=== PATIENT | female | born 1980 | race Caucasian/White ===

== ENCOUNTER 2019-12-18 15:59 | Emergency (ER) | payer BC, SELFPAY ==
[2019-12-18 16:01] VITALS: BP 141/80; PULSE 84; RESP 17; TEMP 36.6; O2SAT 100; BMI 42.8
--- NOTE | 2019-12-18 16:36 | ED.LOWEXIN ---
HPI - Extremity Injury (Lower) General Chief Complaint: Extremity Injury, Lower Stated Complaint: knee swelling Time Seen by Provider: 12/18/19 16:24 Source: patient Mode of arrival: ambulatory Limitations: no limitations History of Present Illness HPI Narrative: 39yo female here with bilateral knee pain x few weeks. Worsened over last week. 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 No fall or injury. No redness/fevers/chills. R knee>L knee with pain and swelling. MD complaint: other (bilateral knee pain, no injury ) Onset (ago): week(s) Injury: Bilateral: knee Type of Injury: other (no injury) Severity: moderate Relieving factors: immobilization and rest Exacerbating factors: weight bearing, movement and palpation Other symptoms: none Treatments prior to arrival: cold therapy and other (APAP) Related Data Previous Rx's Medication Instructions Recorded oxycodone 5 mg PO Q8H PRN #10 tab 12/18/19 Allergies Allergy/AdvReac Type Severity Reaction Status Date / Time aspirin [ASPIRIN] Allergy Mild TACHYCARDIA, Unverified 11/10/19 16:58 THROAT SWELLING, throat swelling, swollen throat phentermine Allergy Unknown sleepiness Uncoded 01/05/19 00:00 Review of Systems Review of Systems: Yes all other systems are reviewed and are negative Constitutional: Constitutional: Reports no additional constitutional complaints, Denies body ache(s), Denies chills, Denies fever(s), Denies headache(s) and Denies weakness Eyes: Eyes: Reports no additional eye complaints and Denies change in vision ENT: Reports system reviewed and no additional complaints, except as documented, Denies dizziness, Denies headache(s), Denies nasal congestion, Denies nasal discharge and Denies neck pain Cardiovascular: Cardiovascular: Reports no additional cardiovascular complaints, Denies chest pain, Denies leg edema and Denies dyspnea Respiratory: Respiratory: Reports no additional respiratory complaints, Denies cough and Denies dyspnea Gastrointestinal: Gastrointestinal: Reports no additional gastrointestinal complaints, Denies abdominal pain, Denies diarrhea, Denies nausea and Denies vomiting Genitourinary: Genitourinary: Reports no additional female genitourinary complaints and Denies urinary incontinence Musculoskeletal: Musculoskeletal: Reports no additional musculoskeletal complaints, Denies back pain, Reports arthralgias, Reports joint swelling, Denies neck pain, Denies numbness and Denies tingling Integumentary/Breasts: Skin/Breast: Reports system reviewed and no additional complaints, except as docu and Denies rash Neurologic: Reports system reviewed and no additional complaints, except as documented, Denies Abnormal speech present, Denies dizziness, Denies headache(s), Denies numbness, Denies tingling and Denies weakness PMF Past Medical History Attestation statement: The following information was validated with the patient. Source: obtained from family and nursing notes reviewed Social History Social History Advance Directives: No Advance Directives Information Provided: No Physical Exam Vital Signs: Vital Signs: Vital Signs Temp Pulse Resp BP Pulse Ox 12/18/19 16:01 98 F 84 17 141/80 H 100 Body Mass Index 42.8 Const: General: cooperative, healthy appearing, comfortable and no acute distress Orientation/consciousness: patient oriented x3 Limitations: no limitations HENMT: Head: Yes normal to inspection Ears: hearing grossly normal bilaterally General nose exam: Normal external nose present Face and sinus: Yes normal facial exam Mouth: Normal oral and palatal mucosa present Throat: Yes posterior oropharynx normal Eyes: General: appearance normal, both eyes and all related structures Pupils: Equal, round and reactive pupils present Neck: Neck: Yes normal visual inspection Chest: Chest palpation & inspection: normal inspection of the chest Resp: Effort & Inspection: normal respiratory effort Auscultation: clear to auscultation bilaterally Cardio: Rate: regular rate Rhythm: regular rhythm Peripheral pulses: Peripheral pulses 2+ throughout GI: Inspection: Yes normal to inspection Palpation (GI): Soft to palpation and nontender Auscultation: normal bowel sounds Back/Spine/Pelvis: Thoracic/Lumbar Spine: thoracic and lumbar spine normal to inspection Skin: General skin exam: no rashes or lesions noted Neuro: General: patient oriented x3, no focal motor deficits and normal sensation to monofilament Cranial nerves: Yes Equal, round and reactive pupils present Cognition (Neuro): normal cognition Speech: No Abnormal speech present Gait exam (Neuro): Normal gait present Motor exam (neuro): 5/5 motor strength present throughout Extrem: General: Yes normal to inspection Right lower extremity: normal capillary refill and knee Details: normal to inspection, tenderness Location: of the patella and of the medial joint line, abnormal ROM (Pain with flexion but is able. At extension with no difficulty) and knee ligament exam normal; no ecchymosis, no deformity and no unusual warmth; no cyanosis and no edema Left lower extremity: normal to inspection, normal capillary refill and knee Details: normal to inspection, tenderness Location: of the patella and abnormal ROM (Pain with flexion but able. At extension with no difficulty); no swelling; no cyanosis and no edema Course Course Course Narrative: X-rays consistent with bilateral DJD. Patient was placed in Alfa wraps. We discussed supportive care at home and following with Orthopedics. Reviewed worrisome signs and symptoms of when to return to the emergency department. Comfortable discharge home. MDM - Extremity Injury (Lower) Imaging Data knee xray: My impression: DJD Radiologist's impression: EXAMINATION: XR knee LT 4V, XR knee RT 4V CLINICAL INFORMATION: Reason for Exam pain, no trauma COMPARISON: None available at the time of this dictation. TECHNIQUE: frontal, lateral, tunnel and patella sunrise views FINDINGS: BONES: No fracture or dislocation is present. JOINTS: Mild narrowing of joint spaces suggest early mild DJD of both knees. No significant osteophytes. There are no joint effusions. SOFT TISSUE: Normal XR/XR knee LT 4V IMPRESSION: Mild DJD. No joint effusion. Discharge Plan Discharge Clinical Impression: Degenerative joint disease Qualifiers: Osteoarthritis location: knee Osteoarthritis type: primary Laterality: bilateral Qualified Code(s): M17.0 - Bilateral primary osteoarthritis of knee Patient Disposition: Home, Self-Care Instructions: Arthritis (ED) Additional Instructions: Ice, elevation, alfa wrap for comfort call orthopedics for a follow-up for appointment Prescriptions: New oxycodone 5 mg tablet 5 mg PO Q8H PRN (Reason: pain) Qty: 10 RF: 0 Referrals: Waylon Ann MD [Physician] - 2 days Stand Alone Forms: Work/School Release Print Language: Luxembourger
== END 2019-12-18 17:55 | disposition home or self-care (01) ==
PROVIDERS: Emergency Provider Emergency Medicine; PCP Internal Medicine
DX: M17.0 Bilateral primary osteoarthritis of knee (principal); M25.562 Pain in left knee; M25.561 Pain in right knee; Z79.899 Other long term (current) drug therapy
CPT/HCPCS: 73564; 99283

== ENCOUNTER 2020-01-10 | Outpatient (REF) | payer BC, SELFPAY | END 2020-01-10 00:01 | LOC: CF | PROVIDERS: PCP Internal Medicine; Visit Provider Orthopaedic Surgery | DX: M22.2X1 Patellofemoral disorders, right knee (principal); M22.2X2 Patellofemoral disorders, left knee | CPT/HCPCS: 20610; J1040 ==

== ENCOUNTER 2020-01-26 14:47 | Outpatient (REF) | payer BC, SELFPAY ==
--- NOTE | 2020-01-26 | MM_ITS ---
EXAMINATION: MM SCREENING DIGITAL BREAST TOMOSYNTHESIS, BILATERAL CLINICAL INFORMATION: Screening. Asymptomatic. The lifetime risk of breast cancer based on the Tyrer-Cuzick Model is 9.1%. COMPARISON: Mammography: January 05, 2019 TECHNIQUE: Digital breast tomosynthesis is performed in both the craniocaudal and mediolateral oblique views along with computer-aided detection (CAD). Synthesized 2D images are generated from the tomosynthesis. FINDINGS: The breasts are heterogeneously dense, which may obscure small masses (ACR BI-RADS breast composition Category c). There are no significant masses, abnormal calcifications, or other abnormalities. MM/MM tomosynthesis screening BI IMPRESSION: There are no significant changes from prior study. ASSESSMENT: BI-RADS 1: Negative RECOMMENDATION: Routine annual mammography screening. This patient's information was entered into a reminder system with a target due date for their next mammogram.
== END 2020-01-26 14:48 | disposition home or self-care (01) ==
LOC: HO.MAMMO 14:47
PROVIDERS: PCP Internal Medicine; Visit Provider Internal Medicine
DX: Z12.31 Encounter for screening mammogram for malignant neoplasm of breast (principal)
CPT/HCPCS: 77063; 77067

== ENCOUNTER 2020-03-15 09:17 | Outpatient (REF) | payer BC, SELFPAY ==
[2020-03-15 10:16] LABS: MANUAL DIFF FLAG NO
[2020-03-15 10:24] LABS: Basophils Percent Auto 0.3 % (0-2); Eosinophils Absolute Auto 0.1 X10*3/uL (0.0-0.4); Hematocrit 37.4 % (37-47); Hemoglobin 11.8 g/dl (12.0-16.0); Imm Gran Abs Auto 0.03 X10*3/uL (0.00-0.03); Imm Gran Pct Auto 0.3 % (0.0-0.4); Lymphocytes Absolute Auto 2.2 X10*3/uL (1.2-4.9); Lymphocytes Percent Auto 24.6 % (20-40); Mean Corpuscular HGB Conc 31.6 g/dl (31.0-35.0); Mean Corpuscular Hemoglobin 26.6 pg (27.0-33.0); Mean Corpuscular Volume 84.4 fL (80-98); Mean Platelet Volume 10.7 fL (9.4-12.3); Monocytes Absolute Auto 0.6 X10*3/uL (0.1-1.2); Monocytes Percent Auto 6.5 % (2-11); Neutrophils Absolute Auto 6.1 X10*3/uL (2.0-8.3); Neutrophils Percent Auto 67.3 % (45-73); Platelet Count 385 X10*3/uL (160-400); Red Blood Count 4.43 X10*6/uL (4.20-5.50); Red Cell Distribution Width 15.7 % (11.0-16.0); White Blood Count 9.1 X10*3/uL (4.8-10.8)
[2020-03-15 11:07] LABS: Anion Gap 12 (12-20); Blood Urea Nitrogen 19 mg/dL (9-16); Calcium 9.6 mg/dL (8.4-10.2); Carbon Dioxide 27 mmol/L (22-29); Chloride 102 mmol/L (96-108); Cholesterol 196 mg/dL; Estimated Glomerular Filt Rate > 60; Glucose Fasting 114 mg/dL (60-99); HDL Cholesterol 59 mg/dL; LDL Cholesterol Calculated 126 mg/dl; Potassium 4.6 mmol/l (3.3-5.1); Sodium 136 mmol/L (135-145); Triglycerides 59 mg/dL
== END 2020-03-15 09:18 | disposition home or self-care (01) ==
LOC: HO.LAB 09:17
PROVIDERS: PCP Internal Medicine; Visit Provider Nurse Practitioner Family
DX: M25.461 Effusion, right knee (principal); M25.462 Effusion, left knee
CPT/HCPCS: 36415; 80048; 80061; 85025

== ENCOUNTER 2020-03-21 14:11 | Outpatient (REF) | payer BC, SELFPAY ==
[2020-03-21 15:58] LABS: TSH reflex Free T4 0.82 mIU/mL (0.32-4.0)
[2020-03-21 16:11] LABS: Folate 6.7 ng/mL (> or = 4.0); Vitamin B12 555 pg/mL (200-900)
[2020-03-24 14:37] LABS: TS Negative Control Passed; TS Panel A 0; TS Panel B 0; TS Positive Control Passed; TSpotTB Negative (SeeBelow)
[2020-03-24 21:37] LABS: Vitamin D 25-OH, D2 <4 ng/mL; Vitamin D 25-OH, D3 21 ng/mL; Vitamin D 25-OH, Total 21 ng/mL (30-100)
== END 2020-03-21 14:12 | disposition home or self-care (01) ==
LOC: HO.LAB 14:11
PROVIDERS: Nurse Practitioner Family; PCP Internal Medicine; Visit Provider Internal Medicine
DX: E55.9 Vitamin D deficiency, unspecified (principal); R53.83 Other fatigue; Z20.822 Contact with and (suspected) exposure to COVID-19; Z11.1 Encounter for screening for respiratory tuberculosis
CPT/HCPCS: 36415; 82306; 82607; 82746; 84443; 86481; U0003

== ENCOUNTER 2021-05-21 07:12 | Outpatient (REF) | payer BC, SELFPAY ==
[2021-05-21 07:32] LABS: MANUAL DIFF FLAG NO
[2021-05-21 08:35] LABS: Basophils Percent Auto 0.3 % (0-2); Eosinophils Absolute Auto 0.1 X10*3/uL (0.0-0.4); Eosinophils Percent Auto 0.8 % (0-4); Hematocrit 35.2 % (37.0-47.0); Imm Gran Abs Auto 0.03 X10*3/uL (0.00-0.03); Imm Gran Pct Auto 0.4 % (0.0-0.4); Lymphocytes Absolute Auto 1.9 X10*3/uL (1.2-4.9); Lymphocytes Percent Auto 24.2 % (20-40); Mean Corpuscular HGB Conc 31.3 g/dl (31.0-35.0); Mean Corpuscular Hemoglobin 26.4 pg (27.0-33.0); Mean Corpuscular Volume 84.6 fL (80.0-98.0); Neutrophils Absolute Auto 4.7 x10*3/uL (2.0-8.3); Neutrophils Percent Auto 61.3 % (45-73); Platelet Count 288 X10*3/uL (160-400); Red Blood Count 4.16 X10*6/uL (4.20-5.50); Red Cell Distribution Width 15.4 % (11.0-16.0); White Blood Count 7.7 X10*3/uL (4.8-10.8)
[2021-05-21 08:58] LABS: Alanine Aminotransferase 28 U/L (0-31); Albumin Level 4.3 g/dL (3.5-5.0); Alkaline Phosphatase 61 U/L (39-117); Anion Gap 12 (12-20); Aspartate Amino Transferase 15 U/L (5-31); Bilirubin Total 0.2 mg/dL (0.0-1.0); Blood Urea Nitrogen 16 mg/dL (9-16); Calcium 9.5 mg/dL (8.4-10.2); Carbon Dioxide 24 mmol/L (22-29); Chloride 105 mmol/L (96-108); Cholesterol 171 mg/dL; Estimated Glomerular Filt Rate > 60; Glucose Fasting 130 mg/dL (60-99); HDL Cholesterol 49 mg/dL; Iron 36 mcg/dL (30-160); LDL Cholesterol Calculated 109 mg/dl; Percent Iron Saturation 9 % (15-50); Potassium 4.2 mmol/L (3.3-5.1); Sodium 137 mmol/L (135-145); Total Iron Binding Capacity 412 mcg/dL (228-428); Total Protein 7.6 g/dL (6.5-8.0); Triglycerides 68 mg/dL; Unsaturated Iron Binding 376 ug/dL
[2021-05-21 09:11] LABS: Vitamin D 25-OH Total 22.8 ng/mL (>30)
[2021-05-23 17:41] LABS: TS Negative Control Passed; TS Panel A 0; TS Panel B 0; TS Positive Control Passed; TSpotTB Negative (Negative)
== END 2021-05-21 07:13 | disposition home or self-care (01) ==
LOC: HO.LAB 07:12
PROVIDERS: PCP Internal Medicine; Visit Provider Internal Medicine
DX: Z00.00 Encounter for general adult medical examination without abnormal findings (principal); D64.9 Anemia, unspecified; E55.9 Vitamin D deficiency, unspecified; Z23 Encounter for immunization; Z11.1 Encounter for screening for respiratory tuberculosis
CPT/HCPCS: 36415; 80053; 80061; 82306; 83540; 85025; 86481

== ENCOUNTER 2021-07-29 15:55 | Emergency (ER) | payer BC, SELFPAY ==
[2021-07-29 16:11] VITALS: BP 143/91; PULSE 89; O2SAT 99
[2021-07-29 16:13] VITALS: BP 137/82; PULSE 74; RESP 16; TEMP 36.8; O2SAT 100; BMI 42.2
--- NOTE | 2021-07-29 16:18 | ECG_ITS ---
Test Reason : SYNCOPE Blood Pressure : / mmHG Vent. Rate : 080 BPM Atrial Rate : 080 BPM P-R Int : 162 ms QRS Dur : 078 ms QT Int : 388 ms P-R-T Axes : 031 030 005 degrees QTc Int : 447 ms Normal sinus rhythm Normal ECG No previous ECGs available Referred By: Generic ED Physician Electronically Signed By:DARIO BARBER
--- NOTE | 2021-07-29 16:34 | ED_ITS ---
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 Patient says that she does not drink much or eat in the morning time. Related Data Previous Rx's Medication Instructions Recorded cholecalciferol (vitamin D3) 50 50 mcg PO DAILY 90 Days #90 cap 04/17/20 mcg (2,000 unit) capsule ferrous sulfate 325 mg (65 mg 325 mg PO DAILY 30 Days #30 tab 04/19/20 iron) tablet cyclobenzaprine 5 mg tablet 5 mg PO BEDTIME PRN 7 Days #7 tab 06/19/21 prednisone 20 mg tablet 20 mg PO DAILY 5 Days #5 tab 06/19/21 Allergies Allergy/AdvReac Type Severity Reaction Status Date / Time aspirin [ASPIRIN] Allergy Mild TACHYCARDIA, Verified 06/19/21 09:58 THROAT SWELLING, throat swelling, swollen throat phentermine Allergy Unknown Sleepiness Verified 06/19/21 09:58 Review of Systems Review of Systems: Yes all other systems are reviewed and are negative [facility] Past Medical History Medical History Anemia Bilateral knee swelling COVID-19 ruled out Encounter for physical examination Immunization due Impaired glucose tolerance Obesity (BMI 30-39.9) Surgical History History of section History of laparoscopic cholecystectomy Status post ablation of incompetent vein using laser Family History Family History Father No problems noted. Mother Diabetes Hypertension Maternal Grandmother No problems noted. Maternal Grandfather CVD (cardiovascular disease) Paternal Grandmother No problems noted. Paternal Grandfather No problems noted. Brother No problems noted. Son No problems noted. Daughter No problems noted. 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 Oriented X3. No acute distress. Eyes: No pallor or icterus ENT: Pharynx normal. Oral Mucosa moist Neck: Normal inspection. Neck supple. CVS: Normal heart rate and rhythm. Pulses normal. Respiratory: No respiratory distress. Equal air entry bilateral, no wheezin g/rales/rhonchi Abdomen: Soft and nontender. Bowel sounds are present, no mass palpable, no CVA tenderness Skin: Skin warm and dry. Normal skin color. Normal skin turgor. Extremities: No lower extremity edema. No calf tenderness Neuro: Oriented X 3. No motor deficit. No sensory deficit.No cerebellar signs , cranial nerves II-XII intact MDM - Dizziness MDM Narrative Medical decision making narrative: Patient clinically has vasovagal attack previous labs on 05/21/2021 were normal at this time patient has no symptoms normal cardiogram normal orthostatics and POC will discharge patient home advised to drink plenty of fluids Lab Data Labs: Lab Results 07/29/21 Range/Units 17:00 POC Glucose 81 (60-115) mg/dL ECG Data Attestation: I personally reviewed and interpreted this ECG as follows: Interpretation: Normal sinus rhythm heart rate 80 beats per minute normal interval normal axis no acute ST T wave changes no acute ischemia Discharge Plan Discharge Clinical Impression: Vasovagal near syncope Patient Disposition: Home, Self-Care Instructions: Near Syncope (ED) Additional Instructions: Drink plenty of fluids Follow-up with PCP if any concerns Prescriptions: No Action cholecalciferol (vitamin D3) 50 mcg (2,000 unit) capsule 50 mcg PO DAILY 90 Days Qty: 90 0RF ferrous sulfate 325 mg (65 mg iron) tablet 325 mg PO DAILY 30 Days Qty: 30 0RF cyclobenzaprine 5 mg tablet 5 mg PO BEDTIME PRN (Reason: muscle spasm) 7 Days Qty: 7 0RF prednisone 20 mg tablet 20 mg PO DAILY 5 Days Qty: 5 0RF
[2021-07-29 17:03] VITALS: BP 119/70; PULSE 72
[2021-07-29 17:04] VITALS: BP 120/69; PULSE 72
[2021-07-29 17:06] VITALS: BP 128/70; PULSE 71
[2021-07-29 17:11] LABS: Glucose, Whole Blood 81 mg/dL (60-115)
--- NOTE | 2021-07-29 17:47 | PC.NURSE ---
PO FLUIDS AND CRACKERS GIVEN PLAN IS FOR DISCHARGE
== END 2021-07-29 18:01 | disposition home or self-care (01) ==
PROVIDERS: Emergency Provider Internal Medicine; PCP Internal Medicine
DX: R55 Syncope and collapse (principal)
CPT/HCPCS: 82947; 93005; 99283; 99284

== ENCOUNTER 2021-11-05 12:07 | Outpatient (REF) | payer BC, SELFPAY ==
[2021-11-05 14:28] LABS: Influenza A PCR NEGATIVE (Negative); Influenza B PCR NEGATIVE (Negative); Resp Syncy Virus RNA Qual PCR NEGATIVE (Negative); SARS COV2 PCR INHOUSE POSITIVE (Negative)
== END 2021-11-05 12:08 | disposition home or self-care (01) ==
LOC: HO.LAB 12:07
PROVIDERS: Visit Provider Internal Medicine
DX: Z20.822 Contact with and (suspected) exposure to COVID-19 (principal); R43.9 Unspecified disturbances of smell and taste
CPT/HCPCS: 0241U

== ENCOUNTER 2022-01-08 09:57 | Outpatient (REF) | payer BC, SELFPAY ==
[2022-01-08 12:59] LABS: Influenza A PCR NEGATIVE (Negative); Influenza B PCR NEGATIVE (Negative); Resp Syncy Virus RNA Qual PCR NEGATIVE (Negative); SARS COV2 PCR INHOUSE NEGATIVE (Negative)
== END 2022-01-08 09:58 | disposition home or self-care (01) ==
LOC: HO.LAB 09:57
PROVIDERS: Visit Provider Nurse Practitioner Family
DX: Z20.822 Contact with and (suspected) exposure to COVID-19 (principal); J02.9 Acute pharyngitis, unspecified
CPT/HCPCS: 0241U

== ENCOUNTER 2022-05-23 08:05 | Outpatient (REF) | payer BC, SELFPAY ==
[2022-05-23 08:18] LABS: MANUAL DIFF FLAG NO
[2022-05-23 09:15] LABS: Basophils Percent Auto 0.4 % (0-2); Eosinophils Absolute Auto 0.1 X10*3/uL (0.0-0.4); Eosinophils Percent Auto 0.6 % (0-4); Hematocrit 36.9 % (37.0-47.0); Hemoglobin 11.6 g/dl (12.0-16.0); Imm Gran Abs Auto 0.04 X10*3/uL (0.00-0.03); Imm Gran Pct Auto 0.4 % (0.0-0.4); Lymphocytes Absolute Auto 2.2 X10*3/uL (1.2-4.9); Lymphocytes Percent Auto 23.4 % (20-40); Mean Corpuscular HGB Conc 31.4 g/dl (31.0-35.0); Mean Corpuscular Hemoglobin 26.5 pg (27.0-33.0); Mean Corpuscular Volume 84.2 fL (80.0-98.0); Mean Platelet Volume 11.2 fL (9.4-12.3); Monocytes Absolute Auto 0.6 X10*3/uL (0.1-1.2); Monocytes Percent Auto 6.9 % (2-11); Neutrophils Absolute Auto 6.3 x10*3/uL (2.0-8.3); Neutrophils Percent Auto 68.3 % (45-73); Platelet Count 328 X10*3/uL (160-400); Red Blood Count 4.38 X10*6/uL (4.20-5.50); White Blood Count 9.3 X10*3/uL (4.8-10.8)
[2022-05-23 09:52] LABS: Alanine Aminotransferase 18 U/L (0-31); Albumin Level 4.5 g/dL (3.5-5.0); Alkaline Phosphatase 51 U/L (39-117); Anion Gap 14 (12-20); Aspartate Amino Transferase 14 U/L (5-31); Bilirubin Total 0.8 mg/dL (0.0-1.0); Blood Urea Nitrogen 11 mg/dL (9-16); Calcium 9.7 mg/dL (8.4-10.2); Carbon Dioxide 24 mmol/L (22-29); Chloride 105 mmol/L (96-108); Cholesterol 201 mg/dL; Estimated Glomerular Filt Rate > 60; Glucose Fasting 126 mg/dL (60-99); HDL Cholesterol 50 mg/dL; Iron 98 mcg/dL (30-160); LDL Cholesterol Calculated 133 mg/dl; Percent Iron Saturation 27 % (15-50); Potassium 4.1 mmol/L (3.3-5.1); Sodium 139 mmol/L (135-145); Total Iron Binding Capacity 361 mcg/dL (228-428); Total Protein 7.7 g/dL (6.5-8.0); Triglycerides 91 mg/dL; Unsaturated Iron Binding 263 ug/dL
[2022-05-23 10:24] LABS: Folate 17.9 ng/mL (> or = 4.0); Vitamin B12 663 pg/mL (200-900); Vitamin D 25-OH Total 25.9 ng/mL (>30)
== END 2022-05-23 08:06 | disposition home or self-care (01) ==
LOC: HO.LAB 08:05
PROVIDERS: PCP Internal Medicine; Visit Provider Internal Medicine
DX: E53.8 Deficiency of other specified B group vitamins (principal); R73.02 Impaired glucose tolerance (oral); D50.9 Iron deficiency anemia, unspecified; E66.9 Obesity, unspecified; E55.9 Vitamin D deficiency, unspecified
CPT/HCPCS: 36415; 80053; 80061; 82306; 82607; 82746; 83540; 84443; 85025

== ENCOUNTER 2022-07-16 09:38 | Outpatient (REF) | payer BC, SELFPAY ==
[2022-07-16 11:46] LABS: Estimated Average Glucose 134 mg/dL; Hemoglobin A1c % 6.3 %
== END 2022-07-16 09:39 | disposition home or self-care (01) ==
LOC: HO.LAB 09:38
PROVIDERS: Absent Provider Nurse Practitioner Family; Visit Provider Internal Medicine
DX: R73.02 Impaired glucose tolerance (oral) (principal)
CPT/HCPCS: 36415; 83036

== ENCOUNTER 2022-08-02 07:44 | Outpatient (REF) | payer BC, SELFPAY ==
--- NOTE | ~2022-08-02 | MM_ITS ---
EXAMINATION: MM SCREENING DIGITAL BREAST TOMOSYNTHESIS, BILATERAL CLINICAL INFORMATION: Screening. Asymptomatic. The lifetime risk of breast cancer based on the Tyrer-Cuzick Model is 8%. COMPARISON: Mammography: 01/26/2020, 01/05/2019 (baseline). TECHNIQUE: Digital breast tomosynthesis is performed in both the craniocaudal and mediolateral oblique views along with computer-aided detection (CAD). Synthesized 2D images are generated from the tomosynthesis. FINDINGS: There are scattered areas of fibroglandular density (ACR BI-RADS breast composition Category b). There are no significant masses, abnormal calcifications, or other abnormalities. Parenchymal pattern is similar to prior studies. There is no developing density or architectural abnormality. Intramammary node posterior upper outer left breast is similar to prior exams. The axilla and skin contours are unremarkable. No significant changes. MM/MM tomosynthesis screening BI IMPRESSION: No mammographic evidence of malignancy. ASSESSMENT: BI-RADS 1: Negative RECOMMENDATION: Routine annual mammography screening. This patient's information was entered into a reminder system with a target due date for their next mammogram.
== END 2022-08-02 07:45 | disposition home or self-care (01) ==
LOC: HO.MAMMO 07:44
PROVIDERS: PCP Internal Medicine; Visit Provider Internal Medicine
DX: Z12.31 Encounter for screening mammogram for malignant neoplasm of breast (principal)
CPT/HCPCS: 77063; 77067

== ENCOUNTER 2022-08-21 12:08 | Outpatient (REF) | payer BC, SELFPAY ==
--- NOTE | ~2022-08-21 | US_ITS ---
EXAMINATION: US VENOUS WITH DOPPLER UPPER EXTREMITY, RIGHT CLINICAL INFORMATION: Right upper extremity pain and swelling. COMPARISON: None available. TECHNIQUE: Ultrasound of the upper extremity is performed using compression sonography and color and pulse Doppler flow with assessment of augmentation of flow. There is also imaging and Doppler assessment of the jugular and subclavian veins. Spectral analysis with color-flow imaging is performed. FINDINGS: Respiratory variation, normal compression, and augmented flow are noted throughout the upper extremity including the axillary, brachial, cubital, and radial and ulnar veins. There is normal flow in the internal jugular and subclavian veins. There is no visible deep or superficial thrombophlebitis. If the patient's symptoms progress, a followup ultrasound in 5 -7 days might be of value to exclude proximal propagation from a nonvisualized distal arm vein. US/US venous duplex UE RT IMPRESSION: No evidence for deep venous thrombosis in the visualized veins of the right upper extremity.
--- NOTE | ~2022-08-21 | XR_ITS ---
EXAMINATION: XR SHOULDER, RIGHT CLINICAL INFORMATION: Right arm pain. COMPARISON: None available. TECHNIQUE: Three views of the right shoulder. FINDINGS: The bones and soft tissues are normal. No fracture. Glenohumeral and acromioclavicular alignment is anatomic with normal joint space. No abnormal soft tissue calcifications. XR/XR shoulder RT min 2V IMPRESSION: Unremarkable right shoulder.
== END 2022-08-21 12:09 | disposition home or self-care (01) ==
LOC: HO.HMGCX 12:08
PROVIDERS: PCP Internal Medicine; Visit Provider Nurse Practitioner Family
DX: M79.601 Pain in right arm (principal); R60.0 Localized edema
CPT/HCPCS: 73030; 93971

== ENCOUNTER 2022-08-21 12:31 | Outpatient (REF) | payer BC, SELFPAY | END 2022-08-21 12:32 | disposition home or self-care (01) | LOC: HO.HMGCX 12:31 | PROVIDERS: PCP Internal Medicine; Visit Provider Nurse Practitioner Family | DX: Z13.89 Encounter for screening for other disorder (principal) ==

== ENCOUNTER 2022-09-10 10:27 | Outpatient (AMB) | payer BC, SELFPAY ==
[2022-09-10 10:47] VITALS: BMI 43.7
--- NOTE | 2022-09-10 10:47 | A.OFFVIS_ITS ---
Intake VS Expanded 09/10/22 10:47 09/23/22 08:31 Height 4 ft 11 in 4 ft 11 in Weight 216 lb 7.903 oz 216 lb BMI 43.7 43.6 Intake Visit Reasons: Morbid Obesity Allergies aspirin [ASPIRIN] Allergy (Mild, Verified 08/21/22 11:23) TACHYCARDIA, THROAT SWELLING, throat swelling, swollen throat phentermine Allergy (Unknown, Verified 08/21/22 11:23) Sleepiness HPI Nutrition Presentation Details Pt presents for MNT for obesity. The Pt was referred by Shweta Barcenas NP primary care provider Pt reports working on reducing sugar intake 24 hour food recall 7-10 am coffee with omelette with veggies and 1-2 slices bread 1: candies/pastries 4pm rice/beans/meat/plantain, water or light juices physical activity : sedentary ETOH: occ on weekends smoking: denies Food frequency Fruits: 0-1 per day Non starchy vegetables: 1 serving per day Dairy: 1-3 servings per day Protein: 8-9 oz per day, not including fish Starches: Greater than 15 servings per day Fried foods: 0 to once a month KYN-Xafdqtp-Mw.Jeor Equation Height 4 ft 11 in Weight 216 lb Resting Metabolic Rate 1542.84 Calculated Activity Level Sedentary Calories Needed to Maintain Weight 1851.41 Diagnosis Nutrition problem #1 excessive energy intake As related to (etiology) #1 diagnosis As evidenced by (sign/symptom) #1 high BMI (pre dm) Most Recent Diabetes Results: Cholesterol 201 mg/dL 05/23/22 HDL Cholesterol 50 mg/dL 05/23/22 Triglycerides 91 mg/dL 05/23/22 Creatinine 0.81 mg/dL (0.5-1.4) 05/23/22 Blood Urea Nitrogen 11 mg/dL (9-16) 05/23/22 Sodium 139 mmol/L (135-145) 05/23/22 Potassium 4.1 mmol/L (3.3-5.1) 05/23/22 Chloride 105 mmol/L (96-108) 05/23/22 Carbon Dioxide 24 mmol/L (22-29) 05/23/22 Calcium 9.7 mg/dL (8.4-10.2) 05/23/22 AST 14 U/L (5-31) 05/23/22 ALT 18 U/L (0-31) 05/23/22 Total Protein 7.7 g/dL (6.5-8.0) 05/23/22 Albumin 4.5 g/dL (3.5-5.0) 05/23/22 [facility] Medical History Anemia Bilateral knee swelling COVID-19 ruled out Encounter for physical examination Immunization due Impaired glucose tolerance Obesity (BMI 30-39.9) Surgical History History of section History of laparoscopic cholecystectomy Status post ablation of incompetent vein using laser Family History Father No problems noted. Mother Diabetes Hypertension Maternal Grandmother No problems noted. Maternal Grandfather CVD (cardiovascular disease) Paternal Grandmother No problems noted. Paternal Grandfather No problems noted. Brother No problems noted. Son No problems noted. Daughter No problems noted. 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 Current occupational exposures/hazards: No Cognitive needs: No Hearing needs: No Vision needs: No Assessment & Plan Assessment & Plan (1) Morbid obesity with body mass index (BMI) of 40.0 to 44.9 in adult: Code(s): E66.01 - Morbid (severe) obesity due to excess calories; Z68.41 - Body mass index [BMI] 40.0-44.9, adult (2) Prediabetes: Code(s): R73.03 - Prediabetes Plan: used: 98 kg Est kcal needs as per MSJ: 6678-0199 (40% carb, 30% protein/fat) Est fluid needs as per 25-30 ml/d: 2450- 2900 Est prot per day as per 1 g/kg bw: 98 Recommend fiber intake : 8-10 g per day and gradually increase to 25-28 g per day for women and or as tolerated Recommend sodium intake per day : less than 1500 mg less than 2000 mg Educated patient on: ( R = reviewed V = verbalizes understanding N/R = needs review N/A = not applicable * Food sources of carbohydrate, adequate serving sizes and its role in various health conditions: R * Differences between complex carbohydrates a simple carbohydrates, role of fiber in diet: R * Differences between types of fats and role in diet (mono on saturated fat fatty acids, saturated fatty acids, trans fats): R basic info * Food sources of sodium in salt and healthy modifications for heart health in kidney health: R basic info * Healthy plate method concept: R V * Physical activity: Benefits a precaution: R Patient Instructions: Work on reducing total carb to less than 45 g at meal time, following healthy plate method Practice mindful eating See meal plan as for reference Coding Level of Care Code Nutr Indiv Intake (22040) Diagnoses Morbid obesity with body mass index (BMI) of 40.0 to 44.9 in adult E66.01; Z68.41 Prediabetes R73.03 Time Spent (min) 30
[2022-09-23 08:31] VITALS: BMI 43.6
== END 2022-09-10 12:24 | disposition home or self-care (01) ==
PROVIDERS: PCP Internal Medicine; Visit Provider Dietitian, Registered
DX: E66.01 Morbid (severe) obesity due to excess calories (principal); Z68.41 Body mass index [BMI] 40.0-44.9, adult; R73.03 Prediabetes

== ENCOUNTER → 2022-09-10 10:27 | Outpatient (BNVA) | payer BC, SELFPAY | PROVIDERS: Visit Provider Dietitian, Registered | DX: E66.01 Morbid (severe) obesity due to excess calories (principal); R73.03 Prediabetes; Z71.3 Dietary counseling and surveillance; Z68.41 Body mass index [BMI] 40.0-44.9, adult | CPT/HCPCS: 97802 ==

== ENCOUNTER 2022-10-28 12:52 | Outpatient (REF) | payer BC, SELFPAY ==
[2022-10-28 16:16] LABS: Alanine Aminotransferase 20 U/L (0-31); Albumin Level 4.5 g/dL (3.5-5.0); Alkaline Phosphatase 53 U/L (39-117); Anion Gap 13 (12-20); Aspartate Amino Transferase 16 U/L (5-31); Bilirubin Total 0.4 mg/dL (0.0-1.0); Blood Urea Nitrogen 12 mg/dL (9-16); Calcium 10.6 mg/dL (8.4-10.2); Carbon Dioxide 23 mmol/L (22-29); Chloride 105 mmol/L (96-108); Estimated Glomerular Filt Rate > 60; Glucose Fasting 94 mg/dL (60-99); Potassium 4.1 mmol/L (3.3-5.1); Sodium 137 mmol/L (135-145); Total Protein 8.3 g/dL (6.5-8.0)
[2022-10-30 08:43] LABS: Rubella IgG Antibody 1.31 Index
[2022-10-30 16:59] LABS: TS Negative Control Passed; TS Panel A 0; TS Panel B 1; TS Positive Control Passed; TSpotTB Negative (Negative)
== END 2022-10-28 12:53 | disposition home or self-care (01) ==
LOC: HO.LAB 12:52
PROVIDERS: PCP Internal Medicine; Visit Provider Internal Medicine
DX: Z01.84 Encounter for antibody response examination (principal); Z11.1 Encounter for screening for respiratory tuberculosis; R73.02 Impaired glucose tolerance (oral)
CPT/HCPCS: 36415; 80053; 86481; 86735; 86762; 86765

== ENCOUNTER 2022-11-04 10:24 | Outpatient (AMB) | payer BC, SELFPAY ==
[2022-11-04 10:38] VITALS: BMI 44.4
--- NOTE | 2022-11-04 10:38 | MHC.AMNUTRGE ---
Intake VS Expanded 11/04/22 10:38 Height 4 ft 11 in Weight 219 lb 12.814 oz BMI 44.4 Intake Visit Reasons: obesity/pre dm Allergies aspirin [ASPIRIN] Allergy (Mild, Verified 08/21/22 11:23) TACHYCARDIA, THROAT SWELLING, throat swelling, swollen throat phentermine Allergy (Unknown, Verified 08/21/22 11:23) Sleepiness HPI Nutrition Presentation Details Pt presents for MNT f/u for T2DM for pre dm and obesity Pt reports doing ok , reports understanding healthy plate method concept. Report working on diet modifications, inconsistently. Diet modification challenges: reports increased appetite, stress eating physical activity:d Dopplr life activities Most Recent Diabetes Results: Creatinine 0.80 mg/dL (0.5-1.4) 10/28/22 Blood Urea Nitrogen 12 mg/dL (9-16) 10/28/22 Sodium 137 mmol/L (135-145) 10/28/22 Potassium 4.1 mmol/L (3.3-5.1) 10/28/22 Chloride 105 mmol/L (96-108) 10/28/22 Carbon Dioxide 23 mmol/L (22-29) 10/28/22 Calcium 10.6 mg/dL (8.4-10.2) H 10/28/22 AST 16 U/L (5-31) 10/28/22 ALT 20 U/L (0-31) 10/28/22 Total Protein 8.3 g/dL (6.5-8.0) H 10/28/22 Albumin 4.5 g/dL (3.5-5.0) 10/28/22 [facility] Medical History Anemia Bilateral knee swelling COVID-19 ruled out Encounter for physical examination Immunization due Impaired glucose tolerance Obesity (BMI 30-39.9) Surgical History History of section History of laparoscopic cholecystectomy Status post ablation of incompetent vein using laser Family History Father No problems noted. Mother Diabetes Hypertension Maternal Grandmother No problems noted. Maternal Grandfather CVD (cardiovascular disease) Paternal Grandmother No problems noted. Paternal Grandfather No problems noted. Brother No problems noted. Son No problems noted. Daughter No problems noted. 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 Current occupational exposures/hazards: No Cognitive needs: No Hearing needs: No Vision needs: No Assessment & Plan Assessment & Plan (1) Morbid obesity with body mass index (BMI) of 40.0 to 44.9 in adult: Code(s): E66.01 - Morbid (severe) obesity due to excess calories; Z68.41 - Body mass index [BMI] 40.0-44.9, adult (2) Prediabetes: Code(s): R73.03 - Prediabetes Plan: used: 98 kg Est kcal needs as per MSJ: 9323-8246 (40% carb, 30% protein/fat) Est fluid needs as per 25-30 ml/d: 2450- 2900 Est prot per day as per 1 g/kg bw: 98 Recommend fiber intake : 8-10 g per day and gradually increase to 25-28 g per day for women and or as tolerated Recommend sodium intake per day : less than 1500 mg less than 2000 mg Educated patient on: ( R = reviewed V = verbalizes understanding N/R = needs review N/A = not applicable Food sources of carbohydrate, adequate serving sizes and its role in various health conditions: R Differences between complex carbohydrates a simple carbohydrates, role of fiber in diet: R Differences between types of fats and role in diet (mono on saturated fat fatty acids, saturated fatty acids, trans fats): R basic info Food sources of sodium in salt and healthy modifications for heart health in kidney health: R basic info Healthy plate method concept: R V Physical activity: Benefits a precaution: R Patient Instructions: engage in 30 minutes physical activity 3 times a week as a healthy strategy for stress reduction increase water, aim at 16-32 oz per day wt loss goal 214 lbs by next f/u Reduce on snacking behavior (choose low calorie options ( be, tomatoes, carrots, celery,) Coding Level of Care Code Nutr Indiv Subseq (98972) Diagnoses Morbid obesity with body mass index (BMI) of 40.0 to 44.9 in adult E66.01; Z68.41 Prediabetes R73.03 Time Spent (min) 30
== END 2022-11-04 11:13 | disposition home or self-care (01) ==
PROVIDERS: PCP Internal Medicine; Visit Provider Dietitian, Registered
DX: E66.01 Morbid (severe) obesity due to excess calories (principal); Z68.41 Body mass index [BMI] 40.0-44.9, adult; R73.03 Prediabetes

== ENCOUNTER → 2022-11-04 10:24 | Outpatient (BNVA) | payer BC, SELFPAY | PROVIDERS: PCP Internal Medicine; Visit Provider Dietitian, Registered | DX: E66.01 Morbid (severe) obesity due to excess calories (principal); Z68.41 Body mass index [BMI] 40.0-44.9, adult; R73.03 Prediabetes; Z71.3 Dietary counseling and surveillance | CPT/HCPCS: 97803 ==

== ENCOUNTER 2023-01-07 08:46 | Outpatient (AMB) | payer BC, SELFPAY ==
[2023-01-07 09:13] VITALS: BMI 45.2
--- NOTE | 2023-01-07 09:13 | A.OFFVIS_ITS ---
Intake VS Expanded 01/07/23 09:13 Height 4 ft 11 in Weight 223 lb 15.834 oz BMI 45.2 Intake Visit Reasons: [id number] Allergies aspirin [ASPIRIN] Allergy (Mild, Verified 08/21/22 11:23) TACHYCARDIA, THROAT SWELLING, throat swelling, swollen throat phentermine Allergy (Unknown, Verified 08/21/22 11:23) Sleepiness HPI Nutrition Presentation Details Pt presents for MNT follow up for morbid obesity Pt not making consistent diet modifications exercising: keeping sedentary challenges : eating late at night Most Recent Diabetes Results: Creatinine 0.80 mg/dL (0.5-1.4) 10/28/22 Blood Urea Nitrogen 12 mg/dL (9-16) 10/28/22 Sodium 137 mmol/L (135-145) 10/28/22 Potassium 4.1 mmol/L (3.3-5.1) 10/28/22 Chloride 105 mmol/L (96-108) 10/28/22 Carbon Dioxide 23 mmol/L (22-29) 10/28/22 Calcium 10.6 mg/dL (8.4-10.2) H 10/28/22 AST 16 U/L (5-31) 10/28/22 ALT 20 U/L (0-31) 10/28/22 Total Protein 8.3 g/dL (6.5-8.0) H 10/28/22 Albumin 4.5 g/dL (3.5-5.0) 10/28/22 [facility] Medical History Anemia Bilateral knee swelling COVID-19 ruled out Encounter for physical examination Immunization due Impaired glucose tolerance Obesity (BMI 30-39.9) Surgical History History of section History of laparoscopic cholecystectomy Status post ablation of incompetent vein using laser Family History Father No problems noted. Mother Diabetes Hypertension Maternal Grandmother No problems noted. Maternal Grandfather CVD (cardiovascular disease) Paternal Grandmother No problems noted. Paternal Grandfather No problems noted. Brother No problems noted. Son No problems noted. Daughter No problems noted. 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 Current occupational exposures/hazards: No Cognitive needs: No Hearing needs: No Vision needs: No Assessment & Plan Assessment & Plan (1) Morbid obesity with body mass index (BMI) of 40.0 to 44.9 in adult: Code(s): E66.01 - Morbid (severe) obesity due to excess calories; Z68.41 - Body mass index [BMI] 40.0-44.9, adult (2) Prediabetes: Code(s): R73.03 - Prediabetes Plan: [place]: walk [place] : [place]- 45 minutes used: 98 kg Est kcal needs as per MSJ: 0196-0983 (40% carb, 30% protein/fat) Est fluid needs as per 25-30 ml/d: 2450- 2900 Est prot per day as per 1 g/kg bw: 98 Recommend fiber intake : 8-10 g per day and gradually increase to 25-28 g per day for women and or as tolerated Recommend sodium intake per day : less than 1500 mg less than 2000 mg Educated patient on: ( R = reviewed V = verbalizes understanding N/R = needs review N/A = not applicable * Food sources of carbohydrate, adequate serving sizes and its role in various health conditions: R * Differences between complex carbohydrates a simple carbohydrates, role of fiber in diet: R * Differences between types of fats and role in diet (mono on saturated fat fatty acids, saturated fatty acids, trans fats): R basic info * Food sources of sodium in salt and healthy modifications for heart health in kidney health: R basic info * Healthy plate method concept: R V * Physical activity: Benefits a precaution: R * MAy recommend monitoring thyroid function Patient Instructions: Pt agreed to engage in physical activity: walking 30 minutes 3 times a week ( at the mall, dancing to music, marching in place) Reduce on snacking at night , make a routine of choosing 1-2 fruits instead of processed foods/snacks Coding Level of Care Code Nutr Indiv Subseq (49186) Diagnoses Morbid obesity with body mass index (BMI) of 40.0 to 44.9 in adult E66.01; Z68.41 Prediabetes R73.03 Time Spent (min) 20
== END 2023-01-07 09:42 | disposition home or self-care (01) ==
PROVIDERS: PCP Internal Medicine; Visit Provider Dietitian, Registered
DX: E66.01 Morbid (severe) obesity due to excess calories (principal); Z68.41 Body mass index [BMI] 40.0-44.9, adult; R73.03 Prediabetes

== ENCOUNTER → 2023-01-07 08:46 | Outpatient (BNVA) | payer BC, SELFPAY | PROVIDERS: PCP Internal Medicine; Visit Provider Dietitian, Registered | DX: E66.01 Morbid (severe) obesity due to excess calories (principal); Z68.42 Body mass index [BMI] 45.0-49.9, adult; R73.03 Prediabetes; Z71.3 Dietary counseling and surveillance | CPT/HCPCS: 97803 ==

== ENCOUNTER 2023-03-10 13:00 | Outpatient (AMB) | payer BC, SELFPAY ==
[2023-03-10 13:09] VITALS: BP 120/82; BMI 44.0
--- NOTE | 2023-03-10 13:09 | MHC.PC.OV ---
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 Accompanied by: Self / Same As Patient Allergies aspirin [ASPIRIN] Allergy (Mild, Verified 03/10/23 13:24) TACHYCARDIA, THROAT SWELLING, throat swelling, swollen throat phentermine Allergy (Unknown, Verified 03/10/23 13:24) Sleepiness Medication List - Last Reconciled 03/10/23 by Cherise Byrd MD cholecalciferol (vitamin D3) 50 mcg PO DAILY 3 months Tobacco use date assessed: 03/10/23 Dental Screening Dental Screen Date: 03/10/23 Did you have a dental visit in the last 12 months?: Yes Did you have a dental problem in the last 6 months where you did not have access to dental care?: No Was dental information given to patient?: Patient has dentist HPI HPI Comments History of Present Illness Details This is a 43-year-old female with morbid obesity, prediabetes and low vitamin-D that comes today for follow-up on her conditions. She is morbidly obese with a BMI of 44 and wants to be referred to weight management. Has prediabetes but denies any polyuria, polydipsia or unintentional weight loss. Will see Endocrinology soon. On vitamin-D supplements for low vitamin-D. No chest pain or shortness of breath. [facility] Medical History Encounter for physical examination Immunization due Obesity (BMI 30-39.9) Anemia Impaired glucose tolerance COVID-19 ruled out Bilateral knee swelling Surgical History Status post ablation of incompetent vein using laser History of section History of laparoscopic cholecystectomy Family History Father No problems noted. Mother Diabetes Hypertension Maternal Grandmother No problems noted. Maternal Grandfather CVD (cardiovascular disease) Paternal Grandmother No problems noted. Paternal Grandfather No problems noted. Brother No problems noted. Son No problems noted. Daughter No problems noted. 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 1. Little interest or pleasure in doing things: not at all 2. Feeling down, depressed, or hopeless: not at all 3. Trouble falling or staying asleep, or sleeping too much: not at all 4. Feeling tired or having little energy: not at all 5. Poor appetite or overeating: not at all 6. Feeling bad about yourself - or that you are a failure or have let yourself or your family down: not at all 7. Trouble concentrating on things, such as reading the newspaper or watching television: not at all 8. Moving or speaking so slowly that other people could have noticed. Or the opposite - being so fidgety or restless that you have been moving around a lot more than usual: not at all 9. Thoughts that you would be better off or of hurting yourself in some way: not at all Total score: 0 Depression Screening Interpretation: Negative Depression Screening Done: Yes 68405 - PHQ-9 Billing: Yes Source: Developed by Drs. John Do, Tiffanie Will, Evaristo Nobles and colleagues, with an educational georgina from [employer]. Thrive Questionnaire Date Thrive assessed: 03/10/23 I am a: Patient What is your living situation today?: I have a steady place to live Within the past 12 months, did the food you bought not last and you didn't have the money to get more?: Never true Within the past 12 months, did you worry whether your food would run out before you got money to buy more?: Never true Do you have trouble paying for medicines?: No Do you have trouble getting transportation to medical appointments?: No Do you have trouble paying your heating and electricity bill?: No Do you have trouble taking care of your child, family member or friend?: No Do you have trouble with day-to-day activities such as bathing, preparing meals, shopping, managing finances, etc.?: No Are you currently unemployed and looking for a job?: No Are you interested in more education?: No Please select the resources that you would like help with: None AUDIT C Alcohol Use Questionnaire (AUDIT-C) 1. How often do you have a drink containing alcohol?: Monthly or less 2. How many drinks containing alcohol do you have on a typical day when you are drinking?: 1 or 2 3. How often do you have six or more drinks on one occasion?: Never Total Score: 1 CARLOTTA-7 AMB Questionnaire CARLOTTA-7 Date CARLOTTA - 7 assessed: 03/10/23 Feeling nervous, anxious, or on edge: 0 = Not at all Not being able to stop or control worryin = Not at all Worrying too much about different things: 0 = Not at all Trouble relaxin = Not at all Being so restless that it is hard to sit still: 0 = Not at all Becoming easily annoyed or irritable: 0 = Not at all Feeling afraid as if something awful might happen: 0 = Not at all Total CARLOTTA-7 score (0-4 normal; 5-9 mild; 10-14 moderate; 15-21 severe): 0 Source: Developed by Drs. John Do, Tiffanie Will, Evaristo Nobles and colleagues, with an educational georgina from [employer]. CARLOTTA-7 Assessment Billing CARLOTTA-7 Assessment Tool: CARLOTTA-7 Assessment 98098 Review of Systems Const All systems reviewed & are unremarkable except as noted in HPI and below Eyes Reports no additional complaints, Denies change in vision and Denies other visual disturbances Card Denies chest pain at rest, Denies chest pain with activity, Denies edema, Denies irregular heart rhythm, Denies claudication, Denies dyspnea, Denies dyspnea on exertion, Denies orthopnea, Denies paroxysmal nocturnal dyspnea and Denies slow heart rate Resp Denies cough, Denies dyspnea and Denies dyspnea on exertion GI Denies abdominal pain, Denies change in bowel habits, Denies excessive flatus, Denies nausea and Denies vomiting Denies urinary incontinence, Denies urinary hesitancy and Denies urinary urgency Musc Denies abnormal gait, Denies atrophy, Denies deformity and Denies limited range of motion Skin/Breast Denies bleeding lesions, Denies changing lesions and Denies rash Neuro Denies abnormal gait, Denies behavioral changes and Denies lack of coordination Psych Denies behavioral changes Physical exam (Primary Care) Vital Signs: Last Vital Signs BP 120/82 03/10/23 13:09 BMI result Body Mass Index 44.0 Tobacco/Smoking Status: Tobacco use Status Tobacco use date assessed 03/10/23 03/10/23 13:13 Patient Tobacco Use Status Never used Tobacco 03/10/23 13:09 e-Cigarette/Vaping Use Never Used 03/10/23 13:09 PHQ-9: PHQ-9 Score PHQ-9: Total score 0 03/10/23 13:36 Depression Screening Interpretation: Negative Thrive Assessment: Date of Thrive Assessment Date Thrive assessed 03/10/23 03/10/23 13:16 Eyes General: appearance normal, both eyes and all related structures Eyelids: Yes eyelids normal Conjunctivae: conjunctivae normal Neck Neck: Yes normal visual inspection and Yes supple Resp Effort & Inspection: normal respiratory effort Auscultation: clear to auscultation bilaterally Cardio Jugular venous distension: no JVD Rate: regular rate Rhythm: regular rhythm Heart sounds: S1 normal heart sound present and S2 normal heart sound present Extrem General: Yes full ROM Office Procedures Flu Questionnaire Does the patient have a severe egg allergy?: No Does the patient have severe life threatening allergies?: No Does the patient have a fever or illness today?: No Has the patient ever had Guillain-Jeannette Syndrome?: No Has the patient ever had any past reaction to a flu shot?: No Immunizations flu vacc [id number] 6mos up(PF) 60 mcg(15 mcgx4)/0.5 mL IM syringe Performing Provider: Cherise Byrd MD [facility] Administered by: ELIZABETH Loredo on 03/10/23 13:36 Dose Route Admin Location Dispensed Lot Number Expiration Date NDC Manager Property 0.5 mL IM Right Deltoid 0.5 mL [id number] 08/23/23 60289-728-29 hoccer VIS Given Date VIS Provided VIS Publication Date 03/10/23 Single Vaccine 20 Eligibility Eligibility Date Funding Source Not [facility] Eligible 03/10/23 Private Assessment and Plan Assessment & Plan (1) Morbid obesity with body mass index (BMI) of 40.0 to 44.9 in adult: Code(s): E66.01 - Morbid (severe) obesity due to excess calories; Z68.41 - Body mass index [BMI] 40.0-44.9, adult Plan: Referred to weight management. BMI goal is less than 30. (2) Prediabetes: Code(s): R73.03 - Prediabetes Plan: Fasting blood glucose was ordered. (3) Hypovitaminosis D: Code(s): E55.9 - Vitamin D deficiency, unspecified Plan: Continue vitamin-D supplements. Orders: Orders Lipid Panel Today E66.01 - Morbid (severe) obesity due to excess calories, E78.5 - Hyperlipidemia, unspecified, Z68.41 - Body mass index [BMI] 40.0-44.9, adult Comprehensive [place]. Panel Fast Today E66.01 - Morbid (severe) obesity due to excess calories, Z68.41 - Body mass index [BMI] 40.0-44.9, adult Thyroid Stimulating Hormone Today E66.01 - Morbid (severe) obesity due to excess calories, Z68.41 - Body mass index [BMI] 40.0-44.9, adult Influenza [id number] Immunization Today Z23 - Encounter for immunization Vitamin D 25-OH Total Today E55.9 - Vitamin D deficiency, unspecified Referrals Medical Weight Management Referral E66.01 - Morbid (severe) obesity due to excess calories, Z68.41 - Body mass index [BMI] 40.0-44.9, adult Coding Level of Care Code Est Pt Level 3 (77720) Diagnoses Morbid obesity with body mass index (BMI) of 40.0 to 44.9 in adult E66.01; Z68.41 Prediabetes R73.03 Hypovitaminosis D E55.9 Additional Codes CARLOTTA-7 Assessment Billing - CARLOTTA-7 Assessment Tool: CARLOTTA-7 Assessment 50235 ([id number]) Time Spent (min) 19
== END 2023-03-10 13:46 | disposition home or self-care (01) ==
PROVIDERS: PCP Internal Medicine; Visit Provider Internal Medicine
DX: R73.03 Prediabetes (principal); E66.01 Morbid (severe) obesity due to excess calories; Z68.41 Body mass index [BMI] 40.0-44.9, adult; Z23 Encounter for immunization; E55.9 Vitamin D deficiency, unspecified
CPT/HCPCS: 90471; 90686; 99213

== ENCOUNTER 2023-03-31 12:05 | Outpatient (AMB) | payer BC, SELFPAY ==
--- NOTE | 2023-03-31 13:24 | MHC.OFFWIV ---
Intake Vital Signs 03/31/23 13:34 Height 4 ft 11 in Weight 216 lb BMI 43.6 BP 114/74 Blood Pressure Location Rt brachial Position Sitting Pulse 98 Pulse Source Pulse Oximeter Temp 98.9 F Temp Source Oral Pulse Oximetry (%) 98 Oxygen Delivery Method Room Air Intake Visit Reasons: EP Headache/[phone] Intake Note: Pt is here c/o headache, pt states she is positive for COVID yesterday. Patient Tobacco Use Status: Never used Tobacco Allergies aspirin [ASPIRIN] Allergy (Mild, Verified 03/10/23 13:24) TACHYCARDIA, THROAT SWELLING, throat swelling, swollen throat phentermine Allergy (Unknown, Verified 03/10/23 13:24) Sleepiness Medication List - Last Reconciled 03/31/23 by Arian Alexander MD cholecalciferol (vitamin D3) 50 mcg PO DAILY 3 months HPI EP Headache/[phone] HPI Details Patient presents for a sick visit. Reporting symptoms of sinus congestion, sore throat and difficulty swallowing. Low-grade fever. No family member is sick. No recent travel. Patient reports symptoms of malaise and fatigue. Patient has tested positive for COVID this morning. [facility] Medical History Encounter for physical examination Immunization due Obesity (BMI 30-39.9) Anemia Impaired glucose tolerance COVID-19 ruled out Bilateral knee swelling Surgical History Status post ablation of incompetent vein using laser History of section History of laparoscopic cholecystectomy Family History Father No problems noted. Mother Diabetes Hypertension Maternal Grandmother No problems noted. Maternal Grandfather CVD (cardiovascular disease) Paternal Grandmother No problems noted. Paternal Grandfather No problems noted. Brother No problems noted. Son No problems noted. Daughter No problems noted. 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 Current occupational exposures/hazards: No Cognitive needs: No Hearing needs: No Vision needs: No Physical Exam Vital Signs: Last Vital Signs Temp 98.9 F 03/31/23 13:34 Pulse 98 03/31/23 13:34 BP 114/74 03/31/23 13:34 Pulse Ox 98 03/31/23 13:34 Oxygen Delivery Method Room Air 03/31/23 13:34 BMI result Body Mass Index 43.6 Const General: cooperative and healthy appearing Nutritional Appearance: well nourished Orientation/consciousness: patient oriented x3 Limitations: no limitations HEENT Head: Yes normal to inspection Eyes General: appearance normal, both eyes and all related structures Neck Neck: Yes normal visual inspection Chest Chest palpation & inspection: normal palpation of entire chest wall Resp Effort & Inspection: normal respiratory effort Neuro General: patient oriented x3 Assessment & Plan Assessment & Plan (1) Upper respiratory tract infection: Code(s): J06.9 - Acute upper respiratory infection, unspecified Plan: Joselovialana called in. If symptoms not better to follow-up here. Coding Level of Care Code Est Pt Level 3 (67020) Diagnoses Upper respiratory tract infection J06.9
[2023-03-31 13:34] VITALS: BP 114/74; PULSE 98; TEMP 37.2; O2SAT 98; BMI 43.6
== END 2023-03-31 14:01 | disposition home or self-care (01) ==
PROVIDERS: PCP Internal Medicine; Visit Provider Internal Medicine
DX: J06.9 Acute upper respiratory infection, unspecified (principal)
CPT/HCPCS: 99213

== ENCOUNTER 2023-04-14 10:13 | Outpatient (AMB) | payer BC, SELFPAY ==
--- NOTE | 2023-04-14 10:40 | A.OFFVIS_ITS ---
Intake VS Expanded 04/14/23 10:41 Height 4 ft 11 in Weight 219 lb 12.814 oz BMI 44.4 Intake Visit Reasons: pre DM/UNABLE TO LVM Allergies aspirin [ASPIRIN] Allergy (Mild, Verified 03/10/23 13:24) TACHYCARDIA, THROAT SWELLING, throat swelling, swollen throat phentermine Allergy (Unknown, Verified 03/10/23 13:24) Sleepiness HPI Nutrition Presentation Details Pt presents to [facility]NT for obesity Pt reports starting to make dietary modifications since various [facility] members are working on diet modifications and doing very well. Pt admits to challenges with keeping consistent diet modifications food frequency fruits/day - not including Pt reports working on reducing on sodas/choosing no sugar flavored harris instead, has 16 oz/day walking - mall - 3 times a week, 45 minutes Most Recent Diabetes Results: Creatinine 0.80 mg/dL (0.5-1.4) 10/28/22 Blood Urea Nitrogen 12 mg/dL (9-16) 10/28/22 Sodium 137 mmol/L (135-145) 10/28/22 Potassium 4.1 mmol/L (3.3-5.1) 10/28/22 Chloride 105 mmol/L (96-108) 10/28/22 Carbon Dioxide 23 mmol/L (22-29) 10/28/22 Calcium 10.6 mg/dL (8.4-10.2) H 10/28/22 AST 16 U/L (5-31) 10/28/22 ALT 20 U/L (0-31) 10/28/22 Total Protein 8.3 g/dL (6.5-8.0) H 10/28/22 Albumin 4.5 g/dL (3.5-5.0) 10/28/22 [facility] Medical History Encounter for physical examination Immunization due Obesity (BMI 30-39.9) Anemia Impaired glucose tolerance COVID-19 ruled out Bilateral knee swelling Surgical History Status post ablation of incompetent vein using laser History of section History of laparoscopic cholecystectomy Family History Father No problems noted. Mother Diabetes Hypertension Maternal Grandmother No problems noted. Maternal Grandfather CVD (cardiovascular disease) Paternal Grandmother No problems noted. Paternal Grandfather No problems noted. Brother No problems noted. Son No problems noted. Daughter No problems noted. 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 Current occupational exposures/hazards: No Cognitive needs: No Hearing needs: No Vision needs: No Assessment & Plan Assessment & Plan (1) Morbid obesity with body mass index (BMI) of 40.0 to 44.9 in adult: Code(s): E66.01 - Morbid (severe) obesity due to excess calories; Z68.41 - Body mass index [BMI] 40.0-44.9, adult Plan: Goal: walk three times[place]week at the mall : 30- 45 minutes - reports meeting goal 03/2023 used: 98 kg , 100 (kg) 03/2023 Est kcal needs as per MSJ: 6193-7977 (40% carb, 30% protein/fat) Est fluid needs as per 25-30 ml/d: 2450- 2900 Est prot per day as per 1 g/kg bw: 98 Recommend fiber intake : 8-10 g per day and gradually increase to 25-28 g per day for women and or as tolerated Recommend sodium intake per day : less than 1500 mg less than 2000 mg Educated patient on: ( R = reviewed V = verbalizes understanding N/R = needs review N/A = not applicable * Food sources of carbohydrate, adequate serving sizes and its role in various health conditions: R * Differences between complex carbohydrates a simple carbohydrates, role of fiber in diet: R * Differences between types of fats and role in diet (mono on saturated fat fatty acids, saturated fatty acids, trans fats): R basic info * Food sources of sodium in salt and healthy modifications for heart health in kidney health: R basic info (2) Prediabetes: Code(s): R73.03 - Prediabetes Plan: Goal: walk three times[place]week at the mall : 30- 45 minutes - reports meeting goal 03/2023 used: 98 kg , 100 (kg) 03/2023 Est kcal needs as per MSJ: 3016-9268 (40% carb, 30% protein/fat) Est fluid needs as per 25-30 ml/d: 2450- 2900 Est prot per day as per 1 g/kg bw: 98 Recommend fiber intake : 8-10 g per day and gradually increase to 25-28 g per day for women and or as tolerated Recommend sodium intake per day : less than 1500 mg less than 2000 mg Educated patient on: ( R = reviewed V = verbalizes understanding N/R = needs review N/A = not applicable * Food sources of carbohydrate, adequate serving sizes and its role in various health conditions: R * Differences between complex carbohydrates a simple carbohydrates, role of fiber in diet: R * Differences between types of fats and role in diet (mono on saturated fat fatty acids, saturated fatty acids, trans fats): R basic info * Food sources of sodium in salt and healthy modifications for heart health in kidney health: R basic info * Healthy plate method concept: R V * Physical activity: Benefits a precaution: R * Patient Instructions: Aim at including 2 fruits per day, replacing snacks which have salt/sodium ( have mandarin, prune, berries Have water in place coffee 3 times a day , increasing water by 16-24 oz /day keep engaged in physical activity , walking at least 30 minutes daily or more as tolerated Coding Level of Care Code Nutr Indiv Subseq (96615) Diagnoses Morbid obesity with body mass index (BMI) of 40.0 to 44.9 in adult E66.01; Z68.41 Prediabetes R73.03 Time Spent (min) 30
[2023-04-14 10:41] VITALS: BMI 44.4
== END 2023-04-14 11:22 | disposition home or self-care (01) ==
PROVIDERS: PCP Internal Medicine; Visit Provider Dietitian, Registered
DX: E66.01 Morbid (severe) obesity due to excess calories (principal); Z68.41 Body mass index [BMI] 40.0-44.9, adult; R73.03 Prediabetes

== ENCOUNTER → 2023-04-14 10:13 | Outpatient (BNVA) | payer BC, SELFPAY | PROVIDERS: PCP Internal Medicine; Visit Provider Dietitian, Registered | DX: E66.01 Morbid (severe) obesity due to excess calories (principal); Z68.41 Body mass index [BMI] 40.0-44.9, adult; R73.03 Prediabetes; Z71.3 Dietary counseling and surveillance | CPT/HCPCS: 97803 ==

== ENCOUNTER 2023-05-22 09:21 | Outpatient (REF) | payer BC, SELFPAY ==
[2023-05-22 11:20] LABS: Alanine Aminotransferase 21 U/L (0-31); Albumin Level 4.4 g/dL (3.5-5.0); Alkaline Phosphatase 57 U/L (39-117); Anion Gap 10 (12-20); Aspartate Amino Transferase 16 U/L (5-31); Bilirubin Total 0.3 mg/dL (0.0-1.0); Blood Urea Nitrogen 12 mg/dL (9-16); Calcium 9.8 mg/dL (8.4-10.2); Carbon Dioxide 26 mmol/L (22-29); Chloride 106 mmol/L (96-108); Cholesterol 178 mg/dL (<200); Estimated Glomerular Filt Rate > 60; Glucose Fasting 136 mg/dL (60-99); HDL Cholesterol 52 mg/dL (>40); LDL Cholesterol Calculated 114 mg/dL (<100); Potassium 4.2 mmol/L (3.3-5.1); Sodium 138 mmol/L (135-145); Total Protein 8.2 g/dL (6.5-8.0); Triglycerides 60 mg/dL (<150)
[2023-05-22 11:38] LABS: Thyroid Stimulating Hormone 0.82 uIU/mL (0.32-4.0); Vitamin D 25-OH Total 28.7 ng/mL (>30)
== END 2023-05-22 09:22 | disposition home or self-care (01) ==
LOC: HO.LAB 09:21
PROVIDERS: PCP Internal Medicine; Visit Provider Internal Medicine
DX: E66.01 Morbid (severe) obesity due to excess calories (principal); Z68.41 Body mass index [BMI] 40.0-44.9, adult; E55.9 Vitamin D deficiency, unspecified; E78.5 Hyperlipidemia, unspecified
CPT/HCPCS: 36415; 80053; 80061; 82306; 84443

== ENCOUNTER 2023-05-28 08:21 | Outpatient (AMB) | payer BC, SELFPAY ==
[2023-05-28 08:27] VITALS: BP 130/86; BMI 44.2
--- NOTE | 2023-05-28 08:27 | A.OFFPC_ITS ---
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 BMI is 44.2 and will see weight management today for her morbid obesity. Mammogram done July 2022 and was normal. Pap smears are up-to-date as per patient. She has impaired glucose tolerance but denies any polyuria, polydipsia or unintentional weight loss. Dietary changes were advised. Complains of blurry vision and will be referred to Ophthalmology. Complains of pruritic skin lesion and will be referred to dermatology. [facility] Medical History (Updated 05/28/23 @ 09:27 by Cherise Byrd MD) Morbid obesity due to excess calories Encounter for physical examination Immunization due Obesity (BMI 30-39.9) Anemia Impaired glucose tolerance COVID-19 ruled out Bilateral knee swelling Surgical History Status post ablation of incompetent vein using laser History of section History of laparoscopic cholecystectomy Family History Father No problems noted. Mother Diabetes Hypertension Maternal Grandmother No problems noted. Maternal Grandfather CVD (cardiovascular disease) Paternal Grandmother No problems noted. Paternal Grandfather No problems noted. Brother No problems noted. Son No problems noted. Daughter No problems noted. 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 John Do, Tiffanie Will, Evaristo Nobles and colleagues, with an educational georgina from [employer]. Review of Systems Const All systems reviewed & are unremarkable except as noted in HPI and below Eyes Reports no additional complaints, Denies change in vision and Denies other visual disturbances Card Denies chest pain at rest, Denies chest pain with activity, Denies edema, Denies irregular heart rhythm, Denies claudication, Denies dyspnea, Denies dyspnea on exertion, Denies orthopnea, Denies paroxysmal nocturnal dyspnea and Denies slow heart rate Resp Denies cough, Denies dyspnea and Denies dyspnea on exertion Skin/Breast Reports lesions Neuro Denies behavioral changes and Denies confusion Psych Denies behavioral changes and Denies confusion Physical exam (Primary Care) Vital Signs: Last Vital Signs BP 130/86 05/28/23 08:27 BMI result Body Mass Index 44.2 Tobacco/Smoking Status: Tobacco use Status Tobacco use date assessed 03/10/23 05/28/23 08:36 Patient Tobacco Use Status Never used Tobacco 05/28/23 08:36 e-Cigarette/Vaping Use Never Used 05/28/23 08:36 Thrive Assessment: Date of Thrive Assessment Date Thrive assessed 03/10/23 05/28/23 08:36 Const General: No confusion Orientation/consciousness: patient oriented x3 and No confusion HENMT Head: Yes normal to inspection, Yes normocephalic and Yes atraumatic Ears: external ears normal Eyes General: appearance normal, both eyes and all related structures Eyelids: Yes eyelids normal Conjunctivae: conjunctivae normal Neck Neck: Yes normal visual inspection and Yes supple Resp Effort & Inspection: normal respiratory effort Auscultation: clear to auscultation bilaterally Cardio Jugular venous distension: no JVD Rate: regular rate Rhythm: regular rhythm Heart sounds: S1 normal heart sound present and S2 normal heart sound present GI Inspection: Yes normal to inspection Palpation (GI): Soft to palpation and nontender Auscultation: normal bowel sounds Skin Lesions: lesion noted Neuro General: patient oriented x3, no focal motor deficits and No confusion Extrem General: Yes full ROM Psych Appearance: grossly normal Results AMB Hemoglobin A1c AMB Hemoglobin A1c 6.0 % Last Edit by ELIZABETH Loredo on 05/28/23 09:0 4 Results Reviewed Results Reviewed: Laboratory Last Values Hgb A1c (Clinic) 6.0 % (4.0-6.0) 05/28/23 09:00 Assessment and Plan Assessment & Plan (1) Encounter for physical examination: Code(s): Z00.00 - Encounter for general adult medical examination without abnormal findings Plan: Repeat in a year. (2) Morbid obesity with body mass index (BMI) of 40.0 to 44.9 in adult: Code(s): E66.01 - Morbid (severe) obesity due to excess calories; Z68.41 - Body mass index [BMI] 40.0-44.9, adult Orders: Orders AMB Hemoglobin A1c Today R73.02 - Impaired glucose tolerance (oral) Patient Instructions: Follow-up with weight management. BMI goal is less than 30. Coding Level of Care Code Est Pt Prev Care 40-64y(51243) Diagnoses Encounter for physical examination Z00.00 Morbid obesity with body mass index (BMI) of 40.0 to 44.9 in adult E66.01; Z68.41 Time Spent (min) 33
== END 2023-05-28 09:09 | disposition home or self-care (01) ==
PROVIDERS: Visit Provider Internal Medicine
DX: Z00.00 Encounter for general adult medical examination without abnormal findings (principal); E66.01 Morbid (severe) obesity due to excess calories; Z68.41 Body mass index [BMI] 40.0-44.9, adult; R73.02 Impaired glucose tolerance (oral)
CPT/HCPCS: 83036; 99396

== ENCOUNTER 2023-07-23 13:59 | Outpatient (AMB) | payer BC, SELFPAY ==
[2023-07-23 14:00] VITALS: BP 130/86; BMI 44.2
--- NOTE | 2023-07-23 14:00 | A.OFFPC_ITS ---
Vital Signs 07/23/23 14:00 Height 4 ft 11 in Weight 219 lb BMI 44.2 BP 130/86 Blood Pressure Location Lt brachial Position Sitting Intake Visit Reasons: breast lump Intake Note: Patient here for c/o right side breast lump, follow up Anemia Sound Technician Required: No Medical Staff Manager: Present (Fabio Giordano CMA) Accompanied by: Self / Same As Patient Allergies aspirin [ASPIRIN] Allergy (Mild, Verified 07/23/23 14:31) TACHYCARDIA, THROAT SWELLING, throat swelling, swollen throat phentermine Allergy (Unknown, Verified 07/23/23 14:31) Sleepiness Medication List - Last Reconciled 07/23/23 by Cherise Byrd MD cholecalciferol (vitamin D3) 50 mcg PO DAILY 3 months Tobacco use date assessed: 03/10/23 Dental Screening Dental Screen Date: 03/10/23 HPI HPI Comments History of Present Illness Details This is a 43-year-old female with iron-deficiency anemia, morbid obesity and low vitamin-D that comes today complaining of right breast pain that started about 2-3 weeks ago. No mass palpated. No nipple discharge or retraction. Last mammogram was normal. No family history of breast cancer. Will order diagnostic mammogram and ultrasound of the breast. Hemoglobin and hematocrit will be recheck. She is morbidly obese with a BMI of 44.2 and has tried diet and exercise with no improvement. Wegovy will be started. Side effects were discussed. On vitamin-D supplements for low vitamin-D and this will also be recheck. No chest pain or shortness on breath. [facility] Medical History (Updated 07/23/23 @ 14:47 by Cherise Byrd MD) Morbid obesity due to excess calories Encounter for physical examination Immunization due Obesity (BMI 30-39.9) Anemia Impaired glucose tolerance COVID-19 ruled out Bilateral knee swelling Surgical History Status post ablation of incompetent vein using laser History of section History of laparoscopic cholecystectomy Family History Father No problems noted. Mother Diabetes Hypertension Maternal Grandmother No problems noted. Maternal Grandfather CVD (cardiovascular disease) Paternal Grandmother No problems noted. Paternal Grandfather No problems noted. Brother No problems noted. Son No problems noted. Daughter No problems noted. 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 John Do, Tiffanie Will, Evaristo Nobles and colleagues, with an educational georgina from [employer]. Review of Systems Const All systems reviewed & are unremarkable except as noted in HPI and below Card Denies chest pain at rest, Denies chest pain with activity, Denies edema, Denies irregular heart rhythm, Denies claudication, Denies dyspnea, Denies dyspnea on exertion, Denies orthopnea, Denies paroxysmal nocturnal dyspnea and Denies slow heart rate Resp Denies cough, Denies dyspnea and Denies dyspnea on exertion Skin/Breast Reports breast pain Physical exam (Primary Care) Vital Signs: Last Vital Signs BP 130/86 07/23/23 14:00 BMI result Body Mass Index 44.2 BMI Assessment/Plan discussion: High BMI High, discussed plan: lifestyle, weight reduction, dietary and physical activity Tobacco/Smoking Status: Tobacco use Status Tobacco use date assessed 03/10/23 07/23/23 14:06 Patient Tobacco Use Status Never used Tobacco 07/23/23 14:06 e-Cigarette/Vaping Use Never Used 07/23/23 14:06 Thrive Assessment: Date of Thrive Assessment Date Thrive assessed 03/10/23 07/23/23 14:06 Chest Chest palpation & inspection: normal inspection of the chest Breast/axilla inspection: normal inspection of the breasts and normal inspection of the axillae Breast/axilla palpation: normal palpation of the axillae and abnormal palpation of the breast (Right breast pain at 12:00 o'clock) Resp Effort & Inspection: normal respiratory effort Auscultation: clear to auscultation bilaterally Cardio Jugular venous distension: no JVD Rate: regular rate Rhythm: regular rhythm Heart sounds: S1 normal heart sound present and S2 normal heart sound present Assessment and Plan Assessment & Plan (1) Breast pain, right: Comment: At 12 o'clock Code(s): N64.4 - Mastodynia Plan: Diagnostic mammogram and ultrasound of the breast ordered. (2) Morbid obesity with body mass index (BMI) of 40.0 to 44.9 in adult: Code(s): E66.01 - Morbid (severe) obesity due to excess calories; Z68.41 - Body mass index [BMI] 40.0-44.9, adult Plan: Start WEgovy. BMI goal is less than 30. (3) Anemia: Code(s): D64.9 - Anemia, unspecified Qualifiers: Anemia type: iron deficiency Iron deficiency anemia type: unspecified iron deficiency Qualified Code(s): D50.9 - Iron deficiency anemia, unspecified Plan: Repeat hemoglobin and hematocrit. (4) Hypovitaminosis D: Code(s): E55.9 - Vitamin D deficiency, unspecified Plan: Continue vitamin-D supplements. Orders: Orders Complete Blood Count Auto Diff Today D64.9 - Anemia, unspecified MM diagnostic mammo BI Today N64.4 - Mastodynia IRON PROFILE Today D64.9 - Anemia, unspecified Vitamin D 25-OH Total Today E55.9 - Vitamin D deficiency, unspecified US breast RT complete Today N64.4 - Mastodynia Medications: New semaglutide (weight loss) (Wegovy) administer weeks 1 through 4 of therapy 0.25 mg (0.5 mL) subcut QWEEK 4 weeks 2 mL 0RF E66.01 - Morbid (severe) obesity due to excess calories, Z68.41 - Bryan dy mass index [BMI] 40.0-44.9, adult Coding Level of Care Code Est Pt Level 4 (80318) Complex EM visit Add On G2211 Diagnoses Breast pain, right N64.4 Morbid obesity with body mass index (BMI) of 40.0 to 44.9 in adult E66.01; Z68.41 Iron deficiency anemia, unspecified iron deficiency anemia type D50.9 Anemia type: iron deficiency Iron deficiency anemia type: unspecified iron deficiency Hypovitaminosis D E55.9 Time Spent (min) 23
== END 2023-07-23 14:49 | disposition home or self-care (01) ==
PROVIDERS: PCP Internal Medicine; Visit Provider Internal Medicine
DX: N64.4 Mastodynia (principal); E66.01 Morbid (severe) obesity due to excess calories; Z68.41 Body mass index [BMI] 40.0-44.9, adult; D50.9 Iron deficiency anemia, unspecified; E55.9 Vitamin D deficiency, unspecified
CPT/HCPCS: 99214

== ENCOUNTER 2023-07-23 14:56 | Outpatient (REF) | payer BC, SELFPAY ==
[2023-07-23 15:39] LABS: MANUAL DIFF FLAG NO
[2023-07-23 16:15] LABS: Basophils Percent Auto 0.3 % (0-2); Eosinophils Absolute Auto 0.1 X10*3/uL (0.0-0.4); Eosinophils Percent Auto 0.8 % (0-4); Hematocrit 35.2 % (37.0-47.0); Hemoglobin 11.5 g/dl (12.0-16.0); Imm Gran Abs Auto 0.05 X10*3/uL (0.00-0.03); Imm Gran Pct Auto 0.5 % (0.0-0.4); Lymphocytes Absolute Auto 2.6 X10*3/uL (1.2-4.9); Lymphocytes Percent Auto 24.9 % (20-40); Mean Corpuscular HGB Conc 32.7 g/dl (31.0-35.0); Mean Corpuscular Hemoglobin 27.1 pg (27.0-33.0); Monocytes Absolute Auto 0.6 X10*3/uL (0.1-1.2); Monocytes Percent Auto 6.2 % (2-11); Neutrophils Percent Auto 67.3 % (45-73); Platelet Count 416 X10*3/uL (160-400); Red Blood Count 4.24 X10*6/uL (4.20-5.50); Red Cell Distribution Width 15.9 % (11.0-16.0); White Blood Count 10.4 X10*3/uL (4.8-10.8)
[2023-07-23 16:47] LABS: Iron 32 mcg/dL (30-160); Percent Iron Saturation 9 % (15-50); Total Iron Binding Capacity 375 mcg/dL (228-428); Unsaturated Iron Binding 343 ug/dL
[2023-07-23 17:02] LABS: Vitamin D 25-OH Total 32.2 ng/mL (>30)
== END 2023-07-23 14:57 | disposition home or self-care (01) ==
LOC: HO.LAB 14:56
PROVIDERS: PCP Internal Medicine; Visit Provider Internal Medicine
DX: D64.9 Anemia, unspecified (principal); E55.9 Vitamin D deficiency, unspecified
CPT/HCPCS: 36415; 82306; 83540; 85025

== ENCOUNTER 2023-08-06 14:55 | Outpatient (REF) | payer BC, SELFPAY ==
--- NOTE | ~2023-08-06 | MM_ITS ---
EXAMINATION: MM DIAGNOSTIC DIGITAL BREAST TOMOSYNTHESIS, BILATERAL US BREAST LIMITED, RIGHT MAMMOGRAPHY: CLINICAL INFORMATION: 43-year-old female complaining of breast pain right breast upper inner quadrant, posterior one third. No specific history of injury. Pain x3 weeks. Different from usual breast pain COMPARISON: Mammography: 08/02/2022, 01/26/2020, 01/05/2019 (baseline). TECHNIQUE: Digital breast tomosynthesis is performed in both the craniocaudal and mediolateral oblique views along with computer-aided detection (CAD). Synthesized 2D images are generated from the tomosynthesis. In addition, a 3-D full-field right ML view was obtained. FINDINGS: The breasts are heterogeneously dense, which may obscure small masses (ACR BI-RADS breast composition Category c). There is a subtle subcutaneous density in the region of the marker for breast pain which has been placed in the upper outer quadrant of the right breast, posterior one third. This may represent a bruise. No additional abnormality noted in the vicinity. Stable lymph node in the axillary tail of the left breast. There are no suspicious masses, suspicious grouped calcifications, or areas of architectural distortion in either breast. The parenchymal pattern is stable from prior exams. ULTRASOUND: CLINICAL INFORMATION: 43-year-old female complaining of breast pain right breast upper inner quadrant, posterior one third. No specific history of injury. Pain x3 weeks. Different from usual breast pain COMPARISON: No relevant prior. TECHNIQUE: Targeted sonographic evaluation right breast was performed using a high frequency linear transducer. Evaluation was limited to the upper inner quadrant, in the region of pain. Selected archived documentation. FINDINGS: RIGHT BREAST: Within the subcutaneous fat of the right breast at the 1:00 axis, 15 cm from the nipple, there is a hyperechoic oval focus most consistent with a fat contusion. This measures approximately 1.2 cm in width by 0.7 cm in depth. Inspection of the skin demonstrates minimal perceptible bruising consistent with injury to this region. This finding is benign. No additional abnormality, suspicious mass, abnormal shadowing, cystic abnormality, or architectural distortion noted in this region. MM/MM tomosynthesis diagnostic BI IMPRESSION: -Findings consistent with a subcutaneous fat contusion within the right breast at the 1:00 axis with minimal overlying bruising. Finding is consistent with injury and benign. No further follow-up recommended. -No findings suggestive of malignancy in either breast. Stable examination otherwise. -Recommend this patient resume routine annual screening. OVERALL ASSESSMENT: Mammography: BI-RADS 2 - Benign Findings Ultrasound: BI-RADS 2 - Benign Findings RECOMMENDATION: 1 year F/U Results were provided to the patient at time of visit by the technologist. This patient's information was entered into a reminder system with a target due date for their next mammogram.
== END 2023-08-06 14:56 | disposition home or self-care (01) ==
LOC: HO.MAMMO 14:55
PROVIDERS: PCP Internal Medicine; Visit Provider Internal Medicine
DX: N64.4 Mastodynia (principal)
CPT/HCPCS: 76642; 77062; 77066

== ENCOUNTER → 2023-08-06 15:00 | Outpatient (BNV) | payer BC, SELFPAY | PROVIDERS: PCP Internal Medicine; Visit Provider Radiology Diagnostic Radiology | DX: N64.4 Mastodynia (principal) | CPT/HCPCS: 76642; 77062; 77066 ==

== ENCOUNTER 2023-09-04 10:20 | Outpatient (AMB) | payer BC, SELFPAY ==
[2023-09-04 10:46] VITALS: BP 122/72; BMI 44.6
--- NOTE | 2023-09-04 10:46 | A.OFFVIS_ITS ---
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 Peoplesoft Fscm Developer Required: No Peoplesoft Fscm Developer Services: Peoplesoft Fscm Developer Present Information Interpreted: clinical only Front End Drupal Developer: Front End Drupal Developer Present Allergies aspirin [ASPIRIN] Allergy (Mild, Verified 09/04/23 10:47) TACHYCARDIA, THROAT SWELLING, throat swelling, swollen throat phentermine Allergy (Unknown, Verified 09/04/23 10:47) Sleepiness Medication List - Last Reconciled 09/04/23 by Alexia Vicente CNM cholecalciferol (vitamin D3) 50 mcg PO DAILY 3 months Is last menstrual period known: Yes Last menstrual period: 08/19/23 Do you need a note to return to daycare/school/sports/work: No HPI HPI 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 She says she has never had an abnormal Pap smear. She had 3 children all delivered by and [facility]. She is to see Dr. Leach. She does not have any problems with her periods. 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 She has 3 children her youngest is 15 her oldest is 29. She is has struggled with weight loss she was given a prescription for would go be but says she did not want to take it and she is just trying on her own. [facility] Medical History Morbid obesity due to excess calories Encounter for physical examination Immunization due Obesity (BMI 30-39.9) Anemia Impaired glucose tolerance COVID-19 ruled out Bilateral knee swelling Surgical History Status post ablation of incompetent vein using laser History of section History of laparoscopic cholecystectomy Family History Father No problems noted. Mother Diabetes Hypertension Maternal Grandmother No problems noted. Maternal Grandfather CVD (cardiovascular disease) Paternal Grandmother No problems noted. Paternal Grandfather No problems noted. Brother No problems noted. Son No problems noted. Daughter No problems noted. 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 Current occupational exposures/hazards: No Cognitive needs: No Hearing needs: No Vision needs: No Female Reproductive History Menstrual Age of Menarche: 7 Duration of menses: 3-5 days Date of last menstrual period: 08/19/23 control method: none Total pregnancies: 3 Full term: 3 History of abnormal pap smear: No (previous pap ,2020,neg(per patient}) Date of Mammogram: 08/06/23 (negative) History of abnormal mammogram: No Physical Exam Vital Signs: Last Vital Signs BP 122/72 09/04/23 10:46 BMI result Body Mass Index 44.6 Const General: healthy appearing, comfortable, no acute distress, well developed and alert Nutritional Appearance: average body habitus Orientation/consciousness: patient oriented x3 Limitations: no limitations HEENT Head: Yes normocephalic Neck Neck: Yes normal visual inspection Thyroid: Thyroid normal Chest Chest palpation & inspection: normal inspection of the chest Breast/axilla inspection: normal inspection of the breasts and normal inspection of the axillae Breast/axilla palpation: normal palpation of the breasts and normal palpation of the axillae Resp Effort & Inspection: normal respiratory effort GI Inspection: Yes normal to inspection, No Abdominal wall edema and No distended Palpation (GI): Soft to palpation and nontender Other: External exam within normal limits vagina is pink and moist and has healthy- appearing mucosa. Her cervix was extremely extremely difficult visualize and it was found by by manual exam to aid in pointing the speculum in the right direction which was anterior and high at the end of the vaginal vault. Cervix nulliparous the edge of it was seen pink smooth no abnormal discharge nontender adnexa and uterus not possible healthy but nontender. Entire exam limited by the adipose tissue. External Female Exam: normal external appearance and normal appearance of the urethra Speculum Exam - Vagina: normal appearance of the vagina, normal palpation and normal vaginal discharge Speculum Exam - Cervix: normal appearance of the cervix, normal palpation and nontender Bimanual exam- vagina & uterus: normal bimanual exam, normal palpation, normal palpation, uterine mobility normal, uterine shape normal, No Cervical tenderness present, non-tender and no cervical motion tenderness Bimanual Exam- Adnexa, other: normal adnexae, no masses, normal and No adnexal tenderness Neuro General: patient oriented x3 Assessment & Plan Assessment & Plan (1) Women's annual routine gynecological examination: Code(s): Z01.419 - Encounter for gynecological examination (general) (routine) without abnormal findings Category: Medical Plan: Speculum exam pelvic exam and Pap smear limited by adiposity. (2) Morbid obesity with body mass index (BMI) of 40.0 to 44.9 in adult: Code(s): E66.01 - Morbid (severe) obesity due to excess calories; Z68.41 - Body mass index [BMI] 40.0-44.9, adult Category: Medical (3) Cervical cancer screening: Code(s): Z12.4 - Encounter for screening for malignant neoplasm of cervix Category: Medical Plan -----Discussed in this visit the following: healthy balanced diet, regular and consistent exercise, getting recommended health screens, doing the best she can for her particular health concerns, kegel exercises, pap smear screening and followup recommendations, mammography screening and SBE, normal changes in cycles in her life stage--- .This note is constructed using voice recognition software. While every effort has been made to ensure accuracy, oracle hyperion consultant errors may have been included. 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 She was given a prescription for go we but did not want to start it because she is her too many things about side effects of these medications she has tried for a long time to lose weight but he is very worried about side effects of things. I did caution that in considering side effects of things it is worthwhile to consider also the side effects increasing time with obesity and increase in risks of diabetes and the health effects thick also come from other problems that can develop from obesity. She is aware she says her mother and her both have diabetes her recently lost about 100 lb he had been doing intermittent fasting and so she is considering trying. She feels her problem is candy when she is under stress at work. Discussed possibly having sugar free chewing gum available well as drinking more water as a substitution for least the mouth feel. Acknowledged how difficult weight loss is. Discussed that it is possible that her Pap smear may come back inadequate because it was so difficult to reach her cervix if it is okay she will not need another 1 for 5 years Discussed also quite frankly control she does not use anything for control she would not continue the if she became because she does know it would not be good for her and she is older now.. She attempted to have a tubal ligation many years ago but Dr. Peacock told her and her that there was way too much scar tissue when he went in and he could not even see the tubes. She is off for the summer for another month. She has not on the portal but I gave her information about it in [place]ican. Hopefully her Pap comes back okay and we will send her a letter about that. in addition she had diagnostic mammography for her breast and she says she was told evidence okay and she needs follow-up in 6 months. Orders: Orders PAP Smear Today Z01.419 - Encounter for gynecological examination (general) (routine) without abnormal findings CT NG by PCR Today Z20.2 - Contact with and (suspected) exposure to infections with a predominantly sexual mode of transmission Bacterial Vaginosis Panel Today N89.8 - Other specified noninflammatory disorders of vagina Coding Level of Care Code New Pt Prev Care 40-64y(20717) Diagnoses Women's annual routine gynecological examination Z01.419 Morbid obesity with body mass index (BMI) of 40.0 to 44.9 in adult E66.01; Z68.41 Cervical cancer screening Z12.4
== END 2023-09-04 11:41 | disposition home or self-care (01) ==
LOC: HO.HWSM 10:20
PROVIDERS: PCP Internal Medicine; Visit Provider Advanced Practice Midwife
DX: Z01.419 Encounter for gynecological examination (general) (routine) without abnormal findings (principal); E66.01 Morbid (severe) obesity due to excess calories; Z68.41 Body mass index [BMI] 40.0-44.9, adult; Z12.4 Encounter for screening for malignant neoplasm of cervix
CPT/HCPCS: 99386

== ENCOUNTER 2023-09-04 10:20 | Outpatient (REF) | payer BC, SELFPAY ==
[2023-09-08 06:03] LABS: CT PCR NOT DETECTED (Not Detect.); NG PCR NOT DETECTED (Not Detect.)
[2023-09-08 10:49] LABS: Bacterial Vaginosis PCR NEGATIVE (Negative); Candida Group PCR NOT DETECTED (Not Detect); Candida glab krusei PCR NOT DETECTED (Not Detect); Trichomonas vaginalis PCR NOT DETECTED (Not Detect)
[2023-09-10 16:58] LABS: HPV mRNA E6/E7 Not Detected (Not Detected)
== END 2023-09-04 10:21 | disposition home or self-care (01) ==
LOC: HO.LNP 10:20
PROVIDERS: PCP Internal Medicine; Visit Provider Advanced Practice Midwife
DX: Z01.419 Encounter for gynecological examination (general) (routine) without abnormal findings (principal); Z11.51 Encounter for screening for human papillomavirus (HPV); Z20.2 Contact with and (suspected) exposure to infections with a predominantly sexual mode of transmission; N89.8 Other specified noninflammatory disorders of vagina
CPT/HCPCS: 0352U; 87491; 87591; 87624; 88175

== ENCOUNTER 2023-09-04 11:36 | Outpatient (REF) | payer BC, SELFPAY | END 2023-09-04 11:37 | disposition home or self-care (01) | LOC: HO.LAB 11:36 | PROVIDERS: Visit Provider Advanced Practice Midwife | DX: Z13.89 Encounter for screening for other disorder (principal) ==

== ENCOUNTER 2023-09-22 09:25 | Outpatient (AMB) | payer BC, SELFPAY ==
--- NOTE | 2023-09-22 09:36 | AM.OFFWIN_ITS ---
Intake Vital Signs 09/22/23 09:37 Height 4 ft 11 in Weight 219 lb BMI 44.2 BP 122/84 Blood Pressure Location Rt radial Position Sitting Pulse 84 Pulse Source Pulse Oximeter Temp 98.3 F Temp Source Oral Pulse Oximetry (%) 97 Oxygen Delivery Method Room Air Intake Visit Reasons: rt leg swollen hurts Intake Note: pt here c/or RT leg pain and swelling. Started last week. No fall or known injury Patient Tobacco Use Status: Never used Tobacco Allergies aspirin [ASPIRIN] Allergy (Mild, Verified 09/22/23 09:37) TACHYCARDIA, THROAT SWELLING, throat swelling, swollen throat phentermine Allergy (Unknown, Verified 09/22/23 09:37) Sleepiness Do you need a note to return to daycare/school/sports/work: No HPI rt leg swollen hurts HPI Details This note is constructed using voice recognition software. While every effort has been made to ensure accuracy, unit control worker errors may have been included. The patient is a 43 year old female who presents to the clinic today with one- week history of right knee swelling and pain. She notes that she had similar several years ago, and she had ultimately been seen by ortho who was able to give her an injection in her knee. She reports that this feels exactly the same. She has had no injury, no swelling in the lower leg, does have pain with ambulating. She denies redness and warmth. [facility] Medical History Morbid obesity due to excess calories Encounter for physical examination Immunization due Obesity (BMI 30-39.9) Anemia Impaired glucose tolerance COVID-19 ruled out Bilateral knee swelling Surgical History Status post ablation of incompetent vein using laser History of section History of laparoscopic cholecystectomy Family History Father No problems noted. Mother Diabetes Hypertension Maternal Grandmother No problems noted. Maternal Grandfather CVD (cardiovascular disease) Paternal Grandmother No problems noted. Paternal Grandfather No problems noted. Brother No problems noted. Son No problems noted. Daughter No problems noted. 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 Current occupational exposures/hazards: No Cognitive needs: No Hearing needs: No Vision needs: No Female Reproductive History Menstrual Age of Menarche: 7 Review of Systems Const All systems reviewed & are unremarkable except as noted in HPI and below Physical Exam Vital Signs: Last Vital Signs Temp 98.3 F 09/22/23 09:37 Pulse 84 09/22/23 09:37 BP 122/84 09/22/23 09:37 Pulse Ox 97 09/22/23 09:37 Oxygen Delivery Method Room Air 09/22/23 09:37 BMI result Body Mass Index 44.2 Const General: cooperative, healthy appearing, comfortable, no acute distress and alert Orientation/consciousness: patient oriented x3 Limitations: no limitations Resp Effort & Inspection: normal respiratory effort and able to speak in complete sentences Auscultation: clear to auscultation bilaterally Cardio Jugular venous distension: no JVD Palpation: normal PMI Rate: regular rate Heart sounds: S1 normal heart sound present, S2 normal heart sound present, no click, no gallops, no murmurs and no rubs Skin General skin exam: no rashes or lesions noted, elasticity normal and turgor normal Neuro General: patient oriented x3 Extrem Other: Tenderness to help patient along patella, with inflammation pushing patella forward. Reduced range of motion due to pain. Antalgic gait present. Negative Homans. General: Yes capillary refill normal and Yes normal exam except as noted Psych Appearance: grossly normal Mental Status: mental status grossly normal Speech and movement: Normal speech and movement present Affect: normal affect Assessment & Plan Assessment & Plan (1) Right knee pain: Code(s): M25.561 - Pain in right knee Qualifiers: Chronicity: chronic Qualified Code(s): M25.561 - Pain in right knee; G89.29 - Other chronic pain Plan: Patient with acute on chronic right knee pain, we will obtain x-ray to evaluate. Advised rest, ice, compression, elevation. We will prescribe prednisone burst for symptomatic relief. Advised patient to follow up with her orthopedist who she can not recall who that was, and may require referral from her primary care provider. Given physical examination, no concern for DVT. Alfa wrap applied. Plan See above for full details and plan. Medications: New prednisolone (Millipred DP) 5 mg PO DAILY 5 ea 0RF 5 days Coding Level of Care Code Est Pt Level 4 (21328) Diagnoses Chronic pain of right knee M25.561; G89.29 Chronicity: chronic
[2023-09-22 09:37] VITALS: BP 122/84; PULSE 84; TEMP 36.8; O2SAT 97; BMI 44.2
== END 2023-09-22 11:04 | disposition home or self-care (01) ==
PROVIDERS: PCP Internal Medicine; Visit Provider Registered Nurse
DX: M25.561 Pain in right knee (principal); G89.29 Other chronic pain
CPT/HCPCS: 99214

== ENCOUNTER 2023-09-22 10:23 | Outpatient (REF) | payer BC, SELFPAY ==
--- NOTE | ~2023-09-22 | XR_ITS ---
EXAMINATION: XR KNEE, RIGHT CLINICAL INFORMATION: Right-sided knee pain COMPARISON: None available. TECHNIQUE: Four views of the right knee. FINDINGS: Small joint effusion. Spurring off the anterior and superior patella. No fracture, dislocation or destructive process. XR/XR knee RT 4V IMPRESSION: Joint effusion but no acute findings observed. There is concern for internal derangement, MRI could be done.
== END 2023-09-22 10:24 | disposition home or self-care (01) ==
LOC: HO.HMGCX 10:23
PROVIDERS: PCP Internal Medicine; Visit Provider Registered Nurse
DX: M25.561 Pain in right knee (principal)
CPT/HCPCS: 73564

== ENCOUNTER 2023-09-28 13:41 | Outpatient (AMB) | payer BC, SELFPAY ==
--- NOTE | 2023-09-28 13:43 | MHC.PC.OV ---
Vital Signs 09/28/23 13:45 Height 4 ft 11 in Weight 219 lb BMI 44.2 BP 118/82 Blood Pressure Location Lt brachial Position Sitting Intake Visit Reasons: follow up walk-in knee pain Senior Accounting Associate Required: No Accompanied by: Self / Same As Patient Allergies aspirin [ASPIRIN] Allergy (Mild, Verified 09/28/23 13:52) TACHYCARDIA, THROAT SWELLING, throat swelling, swollen throat phentermine Allergy (Unknown, Verified 09/28/23 13:52) Sleepiness Medication List - Last Reconciled 09/28/23 by Cherise Byrd MD cholecalciferol (vitamin D3) 50 mcg PO DAILY 3 months Tobacco use date assessed: 03/10/23 Dental Screening Dental Screen Date: 03/10/23 HPI HPI Comments History of Present Illness Details This is a 43-year-old female with morbid obesity that complains of right knee pain that started about 10-14 days ago with no previous trauma. She said she woke up with the pain and feels like there is something there. X-ray shows possible derangement of right knee and they recommended MRI. She is able to fully extend the knee but not flex the knee. She is morbidly obese with a BMI of 44.2 and was advised to diet and exercise. [facility] Medical History (Updated 09/28/23 @ 13:56 by Cherise Byrd MD) Morbid obesity due to excess calories Encounter for physical examination Immunization due Obesity (BMI 30-39.9) Anemia Impaired glucose tolerance COVID-19 ruled out Bilateral knee swelling Surgical History Status post ablation of incompetent vein using laser History of section History of laparoscopic cholecystectomy Family History Father No problems noted. Mother Diabetes Hypertension Maternal Grandmother No problems noted. Maternal Grandfather CVD (cardiovascular disease) Paternal Grandmother No problems noted. Paternal Grandfather No problems noted. Brother No problems noted. Son No problems noted. Daughter No problems noted. 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 John Do, Tiffanie Will, Evaristo Nobles and colleagues, with an educational georgina from [employer]. Review of Systems Const All systems reviewed & are unremarkable except as noted in HPI and below Card Denies chest pain at rest, Denies chest pain with activity, Denies edema, Denies irregular heart rhythm, Denies claudication, Denies dyspnea, Denies dyspnea on exertion, Denies orthopnea, Denies paroxysmal nocturnal dyspnea and Denies slow heart rate Resp Denies cough, Denies dyspnea and Denies dyspnea on exertion GI Denies abdominal pain, Denies change in bowel habits, Denies excessive flatus, Denies nausea and Denies vomiting Denies urinary incontinence, Denies urinary hesitancy and Denies urinary urgency Musc Reports arthralgias and Reports limited range of motion Physical exam (Primary Care) Vital Signs: Last Vital Signs BP 118/82 09/28/23 13:45 BMI result Body Mass Index 44.2 BMI Assessment/Plan discussion: High BMI High, discussed plan: lifestyle, weight reduction, dietary and physical activity Tobacco/Smoking Status: Tobacco use Status Tobacco use date assessed 03/10/23 09/28/23 13:46 Patient Tobacco Use Status Never used Tobacco 09/28/23 13:46 e-Cigarette/Vaping Use Never Used 09/28/23 13:46 Thrive Assessment: Date of Thrive Assessment Date Thrive assessed 03/10/23 09/28/23 13:46 Resp Effort & Inspection: normal respiratory effort Auscultation: clear to auscultation bilaterally Cardio Jugular venous distension: no JVD Rate: regular rate Rhythm: regular rhythm Heart sounds: S1 normal heart sound present and S2 normal heart sound present Extrem Right lower extremity: knee Details: tenderness Location: of the patella, abnormal ROM Details: pain with active ROM during Details: in flexion and pain with passive ROM during Details: in flexion and crepitus Assessment and Plan Assessment & Plan (1) Derangement of knee, right: Code(s): M23.91 - Unspecified internal derangement of right knee Plan: Referred to Ortho. MRI ordered. (2) Morbid obesity with body mass index (BMI) of 40.0 to 44.9 in adult: Code(s): E66.01 - Morbid (severe) obesity due to excess calories; Z68.41 - Body mass index [BMI] 40.0-44.9, adult Plan: Start diet and exercise. BMI goal is less than 30. Orders: Orders MR knee RT wo con Today M23.91 - Unspecified internal derangement of right knee Referrals Orthopedics Referral M23.91 - Unspecified internal derangement of right knee Medications: New acetaminophen ER 650 mg PO Q8H PRN 90 tabs 0RF pain 30 days Coding Level of Care Code Est Pt Level 3 (02877) Complex EM visit Add On G2211 Diagnoses Derangement of knee, right M23.91 Morbid obesity with body mass index (BMI) of 40.0 to 44.9 in adult E66.01; Z68.41 Time Spent (min) 19
[2023-09-28 13:45] VITALS: BP 118/82; BMI 44.2
== END 2023-09-28 14:04 | disposition home or self-care (01) ==
PROVIDERS: PCP Internal Medicine; Visit Provider Internal Medicine
DX: M23.91 Unspecified internal derangement of right knee (principal); E66.01 Morbid (severe) obesity due to excess calories; Z68.41 Body mass index [BMI] 40.0-44.9, adult
CPT/HCPCS: 99213

== ENCOUNTER 2023-10-05 11:58 | Outpatient (AMB) | payer BC, SELFPAY ==
--- NOTE | 2023-10-05 12:13 | A.OFFVIS_ITS ---
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 Patient reports her pain presented about a week prior to her walk in visit on 09/22/23. She followed up with her PCP who ordered an MRI and is scheduled for tomorrow. Denies injury. Her pain is located at the lateral aspect of knee and her pain increases with walking. Hx of cortisone injection in bilateral knees about 6 years ago with relief. Finds some relief with acetaminophen. 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 Patient reports her pain presented about a week prior to her walk in visit on 09/22/23. She followed up with her PCP who ordered an MRI and is scheduled for tomorrow. Denies injury. Her pain is located at the lateral aspect of knee and her pain increases with walking. Hx of cortisone injection in bilateral knees about 6 years ago with relief. Finds some relief with acetaminophen. 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 [facility] Medical History Morbid obesity due to excess calories Encounter for physical examination Immunization due Obesity (BMI 30-39.9) Anemia Impaired glucose tolerance COVID-19 ruled out Bilateral knee swelling Surgical History Status post ablation of incompetent vein using laser History of section History of laparoscopic cholecystectomy Family History Father No problems noted. Mother Diabetes Hypertension Maternal Grandmother No problems noted. Maternal Grandfather CVD (cardiovascular disease) Paternal Grandmother No problems noted. Paternal Grandfather No problems noted. Brother No problems noted. Son No problems noted. Daughter No problems noted. 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 Site was prepped using aseptic technique. Patient tolerated the procedure well. Primary Site: right knee Approach Used: anterolateral Coding 14363 - Large joint Procedure code (CPT) selection complete Results Reviewed Results Reviewed: I personally reviewed relevant radiographs. Mild right knee OA Assessment & Plan Assessment & Plan (1) Knee effusion, right: Code(s): M25.461 - Effusion, right knee Category: Medical Plan: Right knee effusion without trauma. Likely from PF arthritis. MRI scheduled. I injected her right knee today. Plan I injected her right knee today Coding Level of Care Code New Pt Level 3 (82175) Diagnoses Knee effusion, right M25.461 CPT Codes Coding - Large joint: 14415 - Large joint ([id number])
[2023-10-05 12:18] VITALS: BMI 44.2
== END 2023-10-05 12:57 | disposition home or self-care (01) ==
PROVIDERS: PCP Internal Medicine; Visit Provider Orthopaedic Surgery
DX: M25.461 Effusion, right knee (principal)
CPT/HCPCS: 20610; 99203

== ENCOUNTER → 2023-10-05 11:58 | Outpatient (BNVA) | payer BC, SELFPAY | PROVIDERS: PCP Internal Medicine; Visit Provider Orthopaedic Surgery | DX: M25.461 Effusion, right knee (principal) | CPT/HCPCS: 20610; J0665; J1100 ==

== ENCOUNTER 2023-10-06 19:23 | Outpatient (REF) | payer BC, SELFPAY ==
--- NOTE | ~2023-10-06 | MR_ITS ---
EXAMINATION: MR KNEE WITHOUT CONTRAST, RIGHT CLINICAL INFORMATION: Internal derangement of right knee. COMPARISON: X-ray of the right knee August 2023. TECHNIQUE: MRI of the knee without contrast was performed using routine sequences on a high-field scanner. FINDINGS: MENISCI: Medial Meniscus: Intact. Lateral Meniscus: Intact. LIGAMENTS: Cruciate: Intact. Collateral: Intact. EXTENSOR MECHANISM: Intact. ARTICULAR CARTILAGE/BONE: Patellofemoral Compartment: There is scattered cartilage heterogeneity and fissuring of the median ridge and medial facet of the patella. There is mild cartilage heterogeneity and fissuring of the medial trochlea cartilage. Overall mild patellofemoral arthrosis. Incidental note is made some metallic artifact partially overlying the medial aspect of the patella of uncertain etiology. Medial Compartment: There is scattered cartilage heterogeneity and surface irregularity in the weightbearing femoral articular cartilage. Overall mild arthrosis. Lateral Compartment: Normal. JOINT FLUID AND BURSAE: There is a mild joint effusion and synovitis. Additional Findings: There is prominent fat protruding into or arising from the suprapatellar recess. This measures 3.9 cm craniocaudal, 2.7 cm transverse and 1.2 cm AP. This could reflect normal variation but is suspicious for either an intra-articular or extra-articular lipoma either protruding into or arising within the joint, possibly within the synovial lining. MR/MR knee RT wo con IMPRESSION: 1. Mild arthrosis of the patellofemoral compartment and medial compartment. 2. Mild joint effusion and synovitis. 3. Prominent fat protruding into or arising from the suprapatellar recess. This could reflect normal variation but is suspicious for either an intra-articular or extra-articular lipoma either protruding into or arising from the joint, possibly within the synovial lining.
== END 2023-10-06 19:24 | disposition home or self-care (01) ==
LOC: HO.MRI 19:23
PROVIDERS: PCP Internal Medicine; Visit Provider Internal Medicine
DX: M23.91 Unspecified internal derangement of right knee (principal)
CPT/HCPCS: 73721

== ENCOUNTER 2023-10-16 12:26 | Outpatient (AMB) | payer BC, SELFPAY ==
--- NOTE | 2023-10-16 12:30 | A.OFFVIS_ITS ---
Vital Signs 10/16/23 12:35 Height 4 ft 11 in Weight 219 lb BMI 44.2 Intake Visit Reasons: OV- Brace Fitting RT Knee Intake Note: Cathy is a 43 year old female who presents today for a right knee brace fitting. I have fixed her for a right knee Reaction Brace Allergies aspirin [ASPIRIN] Allergy (Mild, Verified 10/05/23 12:22) TACHYCARDIA, THROAT SWELLING, throat swelling, swollen throat phentermine Allergy (Unknown, Verified 10/05/23 12:22) Sleepiness HPI HPI OV- Brace Fitting RT Knee: Details: Still with pain but wanting to work. Here for fitting of a knee sleeve. [facility] Medical History Morbid obesity due to excess calories Encounter for physical examination Immunization due Obesity (BMI 30-39.9) Anemia Impaired glucose tolerance COVID-19 ruled out Bilateral knee swelling Surgical History Status post ablation of incompetent vein using laser History of section History of laparoscopic cholecystectomy Family History Father No problems noted. Mother Diabetes Hypertension Maternal Grandmother No problems noted. Maternal Grandfather CVD (cardiovascular disease) Paternal Grandmother No problems noted. Paternal Grandfather No problems noted. Brother No problems noted. Son No problems noted. Daughter No problems noted. 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 No restrictions at work. May follow up as needed. Coding Level of Care Code Est Pt Level 2 (21524) Diagnoses Knee effusion, right M25.461
[2023-10-16 12:35] VITALS: BMI 44.2
== END 2023-10-16 13:03 | disposition home or self-care (01) ==
PROVIDERS: PCP Internal Medicine; Visit Provider Orthopaedic Surgery
DX: M25.461 Effusion, right knee (principal)
CPT/HCPCS: 99212

== ENCOUNTER → 2023-10-16 12:26 | Outpatient (BNVA) | payer BC, SELFPAY | PROVIDERS: PCP Internal Medicine; Visit Provider Orthopaedic Surgery ==

== ENCOUNTER 2023-11-09 14:17 | Outpatient (AMB) | payer BC, SELFPAY ==
[2023-11-09 14:21] VITALS: BMI 44.2
--- NOTE | 2023-11-09 14:21 | A.OFFVIS_ITS ---
Vital Signs 11/09/23 14:21 Height 4 ft 11 in Weight 219 lb BMI 44.2 Intake Visit Reasons: OV- MRI Review RT Knee Allergies aspirin [ASPIRIN] Allergy (Mild, Verified 11/09/23 14:24) TACHYCARDIA, THROAT SWELLING, throat swelling, swollen throat phentermine Allergy (Unknown, Verified 11/09/23 14:24) Sleepiness HPI HPI OV- MRI Review RT Knee: Details: Cathy is a 43 year old female who presents today for an MRI review of her right knee. Patient states that the cortisone injection didn't really help with the symptoms and the pain education prescribed isn't helping. She would like to discuss other treatment options. She describes pain with stairs and standing from a seated position. [facility] Medical History Morbid obesity due to excess calories Encounter for physical examination Immunization due Obesity (BMI 30-39.9) Anemia Impaired glucose tolerance COVID-19 ruled out Bilateral knee swelling Surgical History Status post ablation of incompetent vein using laser History of section History of laparoscopic cholecystectomy Family History Father No problems noted. Mother Diabetes Hypertension Maternal Grandmother No problems noted. Maternal Grandfather CVD (cardiovascular disease) Paternal Grandmother No problems noted. Paternal Grandfather No problems noted. Brother No problems noted. Son No problems noted. Daughter No problems noted. 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 MR/MR knee RT wo con IMPRESSION: 1. Mild arthrosis of the patellofemoral compartment and medial compartment. 2. Mild joint effusion and synovitis. 3. Prominent fat protruding into or arising from the suprapatellar recess. This could reflect normal variation but is suspicious for either an intra-articular or extra-articular lipoma either protruding into or arising from the joint, possibly within the synovial lining. Assessment & Plan Assessment & Plan (1) Knee effusion, right: Code(s): M25.461 - Effusion, right knee Category: Medical Plan: This is a 43-year-old woman with a painful and swollen right knee. I reviewed her MRI with her. Injections have not helped. I do not think surgery would benefit her at this time and I recommend a referral to pain management. I discussed this with her and she expressed understanding. I think her primary diagnosis arthritis and her pain is coming from the subsequent effusion. Coding Level of Care Code Est Pt Level 3 (11202) Diagnoses Knee effusion, right M25.461
== END 2023-11-09 14:54 | disposition home or self-care (01) ==
PROVIDERS: PCP Internal Medicine; Visit Provider Orthopaedic Surgery
DX: M25.461 Effusion, right knee (principal)
CPT/HCPCS: 99213

== ENCOUNTER → 2023-11-09 14:17 | Outpatient (BNVA) | payer BC, SELFPAY | PROVIDERS: PCP Internal Medicine; Visit Provider Orthopaedic Surgery ==

== ENCOUNTER 2023-11-26 08:16 | Outpatient (AMB) | payer BC, SELFPAY ==
--- NOTE | 2023-11-26 08:19 | A.OFFVIS_ITS ---
Vital Signs 11/26/23 08:24 Height 4 ft 11 in Weight 212 lb BMI 42.8 BP 157/81 H Blood Pressure Location Rt brachial Position Sitting Pulse 91 Pulse Source Pulse Oximeter Pulse Oximetry (%) 99 Oxygen Delivery Method Room Air Intake Visit Reasons: Osteoarthritis Right Knee Intake Note: Pain today 11/02 Regional Administrative Assistant Required: Yes Regional Administrative Assistant Language: Flower Buncher Or Picker Services: Regional Administrative Assistant Present Regional Administrative Assistant Name: Marge #[id number] Accompanied by: Self / Same As Patient Allergies aspirin [ASPIRIN] Allergy (Mild, Verified 11/26/23 08:24) TACHYCARDIA, THROAT SWELLING, throat swelling, swollen throat phentermine Allergy (Unknown, Verified 11/26/23 08:24) Sleepiness HPI HPI Osteoarthritis Right Knee: Details: Patient is a pleasant 43 years old Mauritian speaking female with a history of bilateral knee pain due to patellofemoral osteoarthritis and morbid obesity, presents today for initial evaluation for right knee pain. spool cleaner was utilized during this visit. Patient underwent right knee cortisone injection at [facility] on 10/05/23 with minimal relief. 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 Patient has difficulty with bending, climbing stairs, decreased tolerance with prolonged walking or standing, performing ADLs and squatting activities secondary to decreased right knee range of motion, stiffness and pain. She presents with localized tenderness in the lateral and medial aspects of the right knee. Li mited ROM with crepitus and mild effusion. No swelling or ecchymosis. Patient has been taking Tylenol and uses the right knee brace for symptomatic relief. She has severe allergy to NSAIDs. Denies any recent trauma, injury or falls. Patient was told she is not a candidate for TKA at this time. Recent right knee xray and MRI reports are noted below. Denies any fever or chills, weakness, foot drop, buckling or locking knees, bladder or bowel dysfunction or saddle anesthesia. Location: Right knee Duration: Chronic pain for 5-6 years, worsening >3 months Characteristics of symptom or complaint: Aching, throbbing, burning, stabbing, sharp, heavy, sore, tiring Aggravating or associated factors: Walking, laying flat, bending, climbing or descending stairs, cold weather Relieving factors: Tylenol, heat/cold, lidocaine patch Treatment: Cortisone injection -minimal relief [facility] Medical History Morbid obesity due to excess calories Encounter for physical examination Immunization due Obesity (BMI 30-39.9) Anemia Impaired glucose tolerance COVID-19 ruled out Bilateral knee swelling Surgical History Status post ablation of incompetent vein using laser History of section History of laparoscopic cholecystectomy Family History Father No problems noted. Mother Diabetes Hypertension Maternal Grandmother No problems noted. Maternal Grandfather CVD (cardiovascular disease) Paternal Grandmother No problems noted. Paternal Grandfather No problems noted. Brother No problems noted. Son No problems noted. Daughter No problems noted. 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 No acute distress. Morbidly obese. Alert and oriented. Mood and affect appropriate. Follows and participates in conversation appropriately. Respiratory effort is unlabored. No cough. Able to transition from sit to stand unassisted. Ambulates with bilaterally normal heel strike and toe off. Mildly antalgic gait with limping due to knee pain. Extrem General: Yes capillary refill normal, Yes no clubbing, cyanosis or edema and Yes no calf tenderness Right lower extremity: knee (Limited ROM due to pain.) Details: normal to inspection, tenderness Location: of the medial joint line, of the lateral joint line and of the pre-patellar area, swelling Location: of the popliteal fossa and crepitus; no ecchymosis and no unusual warmth Results Reviewed Results Reviewed: MR KNEE WITHOUT CONTRAST, RIGHT 10/06/23 CLINICAL INFORMATION: Internal derangement of right knee. COMPARISON: X-ray of the right knee August 2023. FINDINGS: MENISCI: Medial Meniscus: Intact. Lateral Meniscus: Intact. LIGAMENTS: Cruciate: Intact. Collateral: Intact. EXTENSOR MECHANISM: Intact. ARTICULAR CARTILAGE/BONE: Patellofemoral Compartment: There is scattered cartilage heterogeneity and fissuring of the median ridge and medial facet of the patella. There is mild cartilage heterogeneity and fissuring of the medial trochlea cartilage. Overall mild patellofemoral arthrosis. Incidental note is made some metallic artifact partially overlying the medial aspect of the patella of uncertain etiology. Medial Compartment: There is scattered cartilage heterogeneity and surface irregularity in the weightbearing femoral articular cartilage. Overall mild arthrosis. Lateral Compartment: Normal. JOINT FLUID AND BURSAE: There is a mild joint effusion and synovitis. Additional Findings: There is prominent fat protruding into or arising from the suprapatellar recess. This measures 3.9 cm craniocaudal, 2.7 cm transverse and 1.2 cm AP. This could reflect normal variation but is suspicious for either an intra-articular or extra-articular lipoma either protruding into or arising within the joint, possibly within the synovial lining. IMPRESSION: 1. Mild arthrosis of the patellofemoral compartment and medial compartment. 2. Mild joint effusion and synovitis. 3. Prominent fat protruding into or arising from the suprapatellar recess. This could reflect normal variation but is suspicious for either an intra-articular or extra-articular lipoma either protruding into or arising from the joint, possibly within the synovial lining. XR KNEE, RIGHT 09/22/23 CLINICAL INFORMATION: Right-sided knee pain FINDINGS: Small joint effusion. Spurring off the anterior and superior patella. No fracture, dislocation or destructive process. IMPRESSION: Joint effusion but no acute findings observed. There is concern for internal derangement, MRI could be done. Assessment & Plan Assessment & Plan (1) Knee effusion, right: Code(s): M25.461 - Effusion, right knee Category: Medical (2) Arthritis of right knee: Code(s): M17.11 - Unilateral primary osteoarthritis, right knee Category: Medical (3) Patellofemoral pain syndrome of both knees: Code(s): M22.2X1 - Patellofemoral disorders, right knee; M22.2X2 - Patellofemoral disorders, left knee Category: Medical (4) Arthritis of right knee: Code(s): M17.11 - Unilateral primary osteoarthritis, right knee Category: Medical Plan Discussed interventional treatments with patient with assistance of [employer], including diagnostic nerve blocks for potential Sprint PNS trial vs genicular RFA, therapeutic injections such as cortisone vs gel injections and PRP injections. Recommend PT therapy to work on ROM and quad strengthening for both knees. Scr ipt provided today. Patient is interested to undergo Right knee intra-articular Synvisc One injection with local and fluoroscopy as initial steps. If no pain relief, we will consider diagnostic right GNB for potential genicular RFA procedure. Patient is not interested in Sprint PNS trial at this time. Expectations, risks and benefits were reviewed. We will call the patient to let her know of the outcome of the prior authorization and proceed accordingly. Patient encouraged daily physical activity, adequate hydration, weight loss, ice/heat therapy, knee bracing, rest and elevation as needed. All questions and concerns have been answered and patient agreed with the plan. Follow up after injections and sooner as needed. Orders: Orders PT Evaluation and Treatment Today M17.11 - Unilateral primary osteoarthritis, right knee, M22.2X1 - Patellofemoral disorders, right knee, M22.2X2 - Patellofemoral disorders, left knee, M25.461 - Effusion, right knee Medications: New gabapentin 300 mg PO BEDTIME 30 days 30 caps 0RF pain M17.11 - Unilateral primary osteoarthritis, right knee, M22.2X1 - Patellofemoral disorders, right knee, M22.2X2 - Patellofemoral disorders, left knee lidocaine 5% 1 patch topical DAILY 30 days 30 ea 1RF pain M17.11 - Unilateral primary osteoarthritis, right knee, M22.2X1 - Patellofemoral disorders, right knee, M22.2X2 - Patellofemoral disorders, left knee Coding Level of Care Code New Pt Level 4 (15578) Complex EM visit Add On G2211 Diagnoses Knee effusion, right M25.461 Arthritis of right knee M17.11 Patellofemoral pain syndrome of both knees M22.2X1; M22.2X2
[2023-11-26 08:24] VITALS: BP 157/81; PULSE 91; O2SAT 99; BMI 42.8
== END 2023-11-26 09:02 | disposition home or self-care (01) ==
PROVIDERS: PCP Internal Medicine; Referring Provider Orthopaedic Surgery; Visit Provider Nurse Practitioner Family
DX: M25.461 Effusion, right knee (principal); M17.11 Unilateral primary osteoarthritis, right knee; M22.2X1 Patellofemoral disorders, right knee; M22.2X2 Patellofemoral disorders, left knee
CPT/HCPCS: 99204

== ENCOUNTER → 2023-11-26 08:16 | Outpatient (BNVA) | payer BC, SELFPAY | PROVIDERS: PCP Internal Medicine; Referring Provider Orthopaedic Surgery; Visit Provider Nurse Practitioner Family ==

== ENCOUNTER 2023-12-18 09:05 | Outpatient (AMB) | payer BC, SELFPAY ==
[2023-12-18 09:43] VITALS: BP 182/92; PULSE 76; RESP 15; O2SAT 100; BMI 43.4
--- NOTE | 2023-12-18 09:43 | A.OFFVIS_ITS ---
Vital Signs 12/18/23 09:43 Height 4 ft 11 in Weight 215 lb BMI 43.4 BP 182/92 H Blood Pressure Location Lt radial Position Sitting Respiration 15 Pulse 76 Pulse Source Pulse Oximeter Pulse Oximetry (%) 100 Oxygen Delivery Method Room Air Intake Visit Reasons: RIGHT KNEE GEL ONE INJECTION Allergies aspirin [ASPIRIN] Allergy (Mild, Verified 12/18/23 09:47) TACHYCARDIA, THROAT SWELLING, throat swelling, swollen throat phentermine Allergy (Unknown, Verified 12/18/23 09:47) Sleepiness Medication List - Last Reconciled 12/18/23 by Iraida Moyer LPN acetaminophen ER 650 mg PO Q8H PRN 30 days cholecalciferol (vitamin D3) 50 mcg PO DAILY 3 months gabapentin 300 mg PO BEDTIME 30 days lidocaine 5% 1 patch topical DAILY 30 days HPI HPI RIGHT KNEE GEL ONE INJECTION: Details: 43-year-old female who presents today to the office for a right knee gel one injection. Denies any recent cough, cold, infection, fever or other significant changes in medical history since last office visit.? [facility] Medical History Morbid obesity due to excess calories Encounter for physical examination Immunization due Obesity (BMI 30-39.9) Anemia Impaired glucose tolerance COVID-19 ruled out Bilateral knee swelling Surgical History Status post ablation of incompetent vein using laser History of section History of laparoscopic cholecystectomy Family History Father No problems noted. Mother Diabetes Hypertension Maternal Grandmother No problems noted. Maternal Grandfather CVD (cardiovascular disease) Paternal Grandmother No problems noted. Paternal Grandfather No problems noted. Brother No problems noted. Son No problems noted. Daughter No problems noted. 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 Alert and oriented. Mood and affect appropriate. Follows and participates in conversation appropriately. Respiratory effort is unlabored. Able to transition from sit to stand unassisted. Ambulates with bilaterally normal heel strike and toe off. Office Procedures Joint Injection/Aspiration Joint Injection/Aspiration Details: Right knee US guided Gel-One Injection 3 mL cross-linked hyaluronate injection Lot # [id number] Exp: 08/23/2025 Primary Site: right knee Prep: site was prepped using sterile technique Approach Used: other (Lateral suprapatellar) Procedure: The patient tolerated the procedure well Coding Details: US image of injection saved to patient record - Large joint Procedure code (CPT) selection complete Results Reviewed Results Reviewed: No imaging is available for review. Assessment & Plan Assessment & Plan (1) Arthritis of right knee: Code(s): M17.11 - Unilateral primary osteoarthritis, right knee Category: Medical Plan Patient is status post right knee intra-articular Gel One injection, US guided. Patient tolerated procedure well and was discharged home in stable condition w ith discharge instructions.? All questions were answered. Follow up as needed. Scribed for Dr. Bradley by Oliver Dorado, medical collections specialist, on 12/18/2023. I, Dr. Bradley, have personally reviewed and agree with the information entered by the scribe. Orders: Orders AMB Joint Injection/Aspiration Today M17.11 - Unilateral primary osteoarthritis, right knee Coding Level of Care Code Procedure Only Diagnoses Arthritis of right knee M17.11 CPT Codes Coding - Large joint: 00396 - Large joint ([id number])
== END 2023-12-18 10:51 | disposition home or self-care (01) ==
PROVIDERS: PCP Internal Medicine; Visit Provider Internal Medicine
DX: M17.11 Unilateral primary osteoarthritis, right knee (principal)
CPT/HCPCS: 20611

== ENCOUNTER → 2023-12-18 09:05 | Outpatient (BNVA) | payer BC, SELFPAY | PROVIDERS: PCP Internal Medicine; Visit Provider Internal Medicine | DX: M17.11 Unilateral primary osteoarthritis, right knee (principal) | CPT/HCPCS: 20611; J7326 ==

== ENCOUNTER 2024-05-23 14:37 | Outpatient (AMB) | payer BC, SELFPAY ==
--- NOTE | 2024-05-23 14:42 | MHC.PC.OV ---
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 Accompanied by: Self / Same As Patient Allergies aspirin [ASPIRIN] Allergy (Mild, Verified 05/23/24 14:59) TACHYCARDIA, THROAT SWELLING, throat swelling, swollen throat phentermine Allergy (Unknown, Verified 05/23/24 14:59) Sleepiness Medication List - Last Reconciled 05/23/24 by Cherise Byrd MD acetaminophen ER 650 mg PO Q8H PRN 30 days cholecalciferol (vitamin D3) 50 mcg PO DAILY 3 months gabapentin 300 mg PO BEDTIME 30 days lidocaine 5% 1 patch topical DAILY 30 days Tobacco use date assessed: 05/23/24 Dental Screening Dental Screen Date: 05/23/24 Did you have a dental visit in the last 12 months?: No Did you have a dental problem in the last 6 months where you did not have access to dental care?: No Was dental information given to patient?: Patient has dentist HPI HPI Comments History of Present Illness Details The patient is a 44-year-old female presenting with concerns regarding blood pressure and weight management and a history of arthrosis in her right knee. There is a persistent history of Essential Hypertension which may be compounded by stress due to her work and academic commitments. She acknowledges episodes of tachycardia linked to aspirin use and insomnia while on phentermine. Currently, she is considering management options like spironolactone. On the weight management front, she is keen on exploring Zepbound therapy for her obesity, although previous requests were potentially blocked by insurance due to her having a BMI indicative of morbid obesity. In relation to her knee, the patient reports persistent discomfort associated with arthrosis. MRI findings reveal a benign lipoma and fluid presence. Although she was not previously sent for orthopedics, she has consented to seek further evaluation since the discomfort endures. Also noteworthy is her report of significant discomfort in her nails due to growth, which she is keen to address with dermatological intervention, a referral that has seemingly fallen through previously without follow-up. [facility] Medical History (Updated 05/23/24 @ 15:14 by Cherise Byrd MD) Morbid obesity due to excess calories Encounter for physical examination Immunization due Obesity (BMI 30-39.9) Anemia Impaired glucose tolerance COVID-19 ruled out Bilateral knee swelling Surgical History Status post ablation of incompetent vein using laser History of section History of laparoscopic cholecystectomy Family History Father No problems noted. Mother Diabetes Hypertension Maternal Grandmother No problems noted. Maternal Grandfather CVD (cardiovascular disease) Paternal Grandmother No problems noted. Paternal Grandfather No problems noted. Brother No problems noted. Son No problems noted. Daughter No problems noted. 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 1. Little interest or pleasure in doing things: not at all 2. Feeling down, depressed, or hopeless: not at all 3. Trouble falling or staying asleep, or sleeping too much: not at all 4. Feeling tired or having little energy: not at all 5. Poor appetite or overeating: not at all 6. Feeling bad about yourself - or that you are a failure or have let yourself or your family down: not at all 7. Trouble concentrating on things, such as reading the newspaper or watching television: not at all 8. Moving or speaking so slowly that other people could have noticed. Or the opposite - being so fidgety or restless that you have been moving around a lot more than usual: not at all 9. Thoughts that you would be better off or of hurting yourself in some way: not at all Total score: 0 Depression Screening Interpretation: Negative Depression Screening Done: Yes 25353 - PHQ-9 Billing: Yes Source: Developed by Drs. John Do, Tiffanie Will, Evaristo Nobles and colleagues, with an educational georgina from [employer]. Thrive Questionnaire Date Thrive assessed: 05/23/24 I am a: Patient What is your living situation today?: I have a steady place to live Within the past 12 months, did the food you bought not last and you didn't have the money to get more?: Never true Within the past 12 months, did you worry whether your food would run out before you got money to buy more?: Never true Do you have trouble paying for medicines?: No Do you have trouble getting transportation to medical appointments?: No Do you have trouble paying your heating and electricity bill?: No Do you have trouble taking care of your child, family member or friend?: No Do you have trouble with day-to-day activities such as bathing, preparing meals, shopping, managing finances, etc.?: No Are you currently unemployed and looking for a job?: No Are you interested in more education?: No Please select the resources that you would like help with: None Currently or been in a relationship where the following occur: No concerns reported THRIVE Score: 0 AUDIT C Alcohol Use Questionnaire (AUDIT-C) 1. How often do you have a drink containing alcohol?: Monthly or less 2. How many drinks containing alcohol do you have on a typical day when you are drinking?: 1 or 2 3. How often do you have six or more drinks on one occasion?: Never Total Score: 1 Score Reviewed/Action Taken: No CARLOTTA-7 AMB Questionnaire CARLOTTA-7 Date CARLOTTA - 7 assessed: 05/23/24 Feeling nervous, anxious, or on edge: 0 = Not at all Not being able to stop or control worryin = Not at all Worrying too much about different things: 0 = Not at all Trouble relaxin = Not at all Being so restless that it is hard to sit still: 0 = Not at all Becoming easily annoyed or irritable: 0 = Not at all Feeling afraid as if something awful might happen: 0 = Not at all Total CARLOTTA-7 score (0-4 normal; 5-9 mild; 10-14 moderate; 15-21 severe): 0 Source: Developed by Drs. John Do, Tiffanie Will, Evaristo Nobles and colleagues, with an educational georgina from [employer]. CARLOTTA-7 Assessment Billing CARLOTTA-7 Assessment Tool: CARLOTTA-7 Assessment 17742 Review of Systems Const All systems reviewed & are unremarkable except as noted in HPI and below Card Denies chest pain at rest, Denies chest pain with activity, Denies edema, Denies irregular heart rhythm, Denies claudication, Denies dyspnea, Denies dyspnea on exertion, Denies orthopnea, Denies paroxysmal nocturnal dyspnea and Denies slow heart rate Resp Denies cough, Denies dyspnea and Denies dyspnea on exertion GI Denies abdominal pain, Denies change in bowel habits, Denies excessive flatus, Denies nausea and Denies vomiting Denies urinary incontinence, Denies urinary hesitancy and Denies urinary urgency Musc Denies atrophy, Denies deformity, Reports arthralgias and Denies limited range of motion Physical exam (Primary Care) Vital Signs: Last Vital Signs Temp 97.3 F 05/23/24 14:45 BP 152/90 H 05/23/24 14:45 BMI result Body Mass Index 44.6 BMI Assessment/Plan discussion: High BMI High, discussed plan: lifestyle, weight reduction, dietary and physical activity Tobacco/Smoking Status: Tobacco use Status Tobacco use date assessed 05/23/24 05/23/24 14:52 Patient Tobacco Use Status Never used Tobacco 05/23/24 14:48 e-Cigarette/Vaping Use Never Used 05/23/24 14:48 PHQ-9: PHQ-9 Score PHQ-9: Total score 0 05/23/24 14:48 Depression Screening Interpretation: Negative Thrive Assessment: Date of Thrive Assessment Date Thrive assessed 05/23/24 05/23/24 14:48 Currently or been in a relationship where the following occur: No concerns reported Resp Effort & Inspection: normal respiratory effort Auscultation: clear to auscultation bilaterally Cardio Jugular venous distension: no JVD Rate: regular rate Rhythm: regular rhythm Heart sounds: S1 normal heart sound present and S2 normal heart sound present Extrem General: Yes full ROM Coding Level of Care Code Est Pt Level 4 (24008) Complex EM visit Add On G2211 Diagnoses Derangement of knee, right M23.91 Skin lesion L98.9 Morbid obesity with body mass index (BMI) of 40.0 to 44.9 in adult E66.01; Z68.41 Essential hypertension I10 Additional Codes PHQ-9 - 20415 - PHQ-9 Billing: Yes ([id number]) CARLOTTA-7 Assessment Billing - CARLOTTA-7 Assessment Tool: CARLOTTA-7 Assessment 59708 ([id number]) Time Spent (min) 22 Assessment & Plan Assessment & Plan (1) Derangement of knee, right: Code(s): M23.91 - Unspecified internal derangement of right knee Category: Medical (2) Skin lesion: Code(s): L98.9 - Disorder of the skin and subcutaneous tissue, unspecified Category: Medical (3) Morbid obesity with body mass index (BMI) of 40.0 to 44.9 in adult: Code(s): E66.01 - Morbid (severe) obesity due to excess calories; Z68.41 - Body mass index [BMI] 40.0-44.9, adult Category: Medical (4) Essential hypertension: Code(s): I10 - Essential (primary) hypertension Category: Medical Plan I plan to start the patient on spironolactone to manage her essential hypertension, with instructions to take it in the morning. A prescription for Zepbound will be provided for her obesity; failing this, weight management support will be pursued. Furthermore, I will refer her to orthopedics for her ongoing right knee complaint and to dermatology regarding her nail issues. Laboratory work has been ordered to better inform our subsequent physical examination. Behavioral modifications such as salt reduction to control blood pressure are advised. Patient was informed and verbally consented to the use of an ambient scribe for clinic note documentation during this visit. I discussed with the patient the management and options for her hypertension, including spironolactone's diuretic potential. The patient was acquainted with the difficulties surrounding weight management drug approval but agreed to initiate Zepbound before considering alternatives. Arthrosis of the knee requires further evaluation by orthopedics and dermatology review for nail pain, with referrals issued accordingly. Risks and benefits of spironolactone were outlined, emphasizing the benefits of reduced blood pressure and potential side effect of increased urination. We also agreed on limiting dietary salt intake as a non-pharmaceutical measure. I confirmed the necessity of completing laboratory tests within eight hours of fasting prior to her upcoming physical examination. Orders: Orders Lipid Panel Today E78.5 - Hyperlipidemia, unspecified Vitamin D 25-OH Total Today E55.9 - Vitamin D deficiency, unspecified Comprehensive [place]. Panel Fast Today E66.01 - Morbid (severe) obesity due to excess calories, Z68.41 - Body mass index [BMI] 40.0-44.9, adult Complete Blood Count Auto Diff Today D64.9 - Anemia, unspecified, E66.01 - Morbid (severe) obesity due to excess calories, Z68.41 - Body mass index [BMI] 40.0-44.9, adult Thyroid Stimulating Hormone Today E66.01 - Morbid (severe) obesity due to excess calories, Z68.41 - Body mass index [BMI] 40.0-44.9, adult Referrals Orthopedics Referral M17.11 - Unilateral primary osteoarthritis, right knee, M23.91 - Unspecified internal derangement of right knee, M25.461 - Effusion, right knee Dermatology Referral L98.9 - Disorder of the skin and subcutaneous tissue, unspecified Medications: New tirzepatide (weight loss) (Zepbound) for 4 weeks 2.5 mg (0.5 mL) subcut QWEEK 4 weeks 2 mL 0RF E66.01 - Morbid (severe) obesity due to excess calories, Z68.41 - Body mass index [BMI] 40.0-44.9, adult spironolactone 25 mg PO DAILY 90 days 90 tabs 1RF Discontinued gabapentin Discontinued Reason: Patient Completed Course 300 mg PO BEDTIME 30 days 30 caps 0RF pain M17.11 - Unilateral primary osteoarthritis, right knee, M22.2X1 - Patellofemoral disorders, right knee, M22.2X2 - Patellofemoral disorders, left knee lidocaine 5% Discontinued Reason: Patient Completed Course 1 patch topical DAILY 30 days 30 ea 1RF pain M17.11 - Unilateral primary osteoarthritis, right knee, M22.2X1 - Patellofemoral disorders, right knee, M22.2X2 - Patellofemoral disorders, left knee Patient Instructions: - Start taking spironolactone as prescribed every morning. - Obtain and try Zepbound for weight loss; explore weight management if unapproved. - Attend referred orthopedics and dermatology appointments. - Complete laboratory work with 8-hour fasting before the next physical exam. - Reduce salt in your diet. - Avoid aspirin unless advised otherwise. - Follow up as scheduled in three weeks.
[2024-05-23 14:45] VITALS: BP 152/90; TEMP 36.3; BMI 44.6
== END 2024-05-23 15:11 | disposition home or self-care (01) ==
LOC: HO.HMCH 14:38
PROVIDERS: PCP Internal Medicine; Visit Provider Internal Medicine
DX: M23.91 Unspecified internal derangement of right knee (principal); L98.9 Disorder of the skin and subcutaneous tissue, unspecified; E66.01 Morbid (severe) obesity due to excess calories; Z68.41 Body mass index [BMI] 40.0-44.9, adult; I10 Essential (primary) hypertension

== ENCOUNTER → 2024-05-23 14:37 | Outpatient (BNVA) | payer BC, SELFPAY | PROVIDERS: PCP Internal Medicine; Visit Provider Internal Medicine | DX: M23.91 Unspecified internal derangement of right knee (principal); L98.9 Disorder of the skin and subcutaneous tissue, unspecified; I10 Essential (primary) hypertension; E66.01 Morbid (severe) obesity due to excess calories; Z68.41 Body mass index [BMI] 40.0-44.9, adult | CPT/HCPCS: 96127 ==

== ENCOUNTER 2024-05-26 07:19 | Outpatient (REF) | payer BC, SELFPAY ==
[2024-05-26 08:04] LABS: MANUAL DIFF FLAG NO
[2024-05-26 08:28] LABS: Basophils Percent Auto 0.2 % (0-2); Eosinophils Absolute Auto 0.1 X10*3/uL (0.0-0.4); Eosinophils Percent Auto 0.8 % (0-4); Hematocrit 36.5 % (37.0-47.0); Hemoglobin 11.6 g/dl (12.0-16.0); Imm Gran Abs Auto 0.04 X10*3/uL (0.00-0.03); Imm Gran Pct Auto 0.4 % (0.0-0.4); Lymphocytes Absolute Auto 2.3 X10*3/uL (1.2-4.9); Lymphocytes Percent Auto 25.3 % (20-40); Mean Corpuscular HGB Conc 31.8 g/dl (31.0-35.0); Mean Corpuscular Hemoglobin 26.1 pg (27.0-33.0); Mean Corpuscular Volume 82.2 fL (80.0-98.0); Mean Platelet Volume 10.2 fL (9.4-12.3); Monocytes Absolute Auto 0.6 X10*3/uL (0.1-1.2); Monocytes Percent Auto 6.5 % (2-11); Neutrophils Percent Auto 66.8 % (45-73); Platelet Count 375 X10*3/uL (160-400); Red Blood Count 4.44 X10*6/uL (4.20-5.50); Red Cell Distribution Width 15.8 % (11.0-16.0)
[2024-05-26 09:03] LABS: Alanine Aminotransferase 23 U/L (0-31); Albumin Level 4.6 g/dL (3.5-5.0); Alkaline Phosphatase 57 U/L (39-117); Anion Gap 9 (12-20); Aspartate Amino Transferase 17 U/L (5-31); Bilirubin Total 0.3 mg/dL (0.0-1.0); Blood Urea Nitrogen 13 mg/dL (9-16); Calcium 9.8 mg/dL (8.4-10.2); Carbon Dioxide 26 mmol/L (22-29); Chloride 107 mmol/L (96-108); Cholesterol 205 mg/dL (<200); Estimated Glomerular Filt Rate > 60; Glucose Fasting 144 mg/dL (60-99); HDL Cholesterol 55 mg/dL (>40); LDL Cholesterol Calculated 136 mg/dL (<100); Sodium 138 mmol/L (135-145); Total Protein 8.3 g/dL (6.5-8.0); Triglycerides 74 mg/dL (<150)
[2024-05-26 09:23] LABS: Thyroid Stimulating Hormone 0.88 uIU/mL (0.32-4.0); Vitamin D 25-OH Total 33.8 ng/mL (>30)
== END 2024-05-26 07:20 | disposition home or self-care (01) ==
LOC: HO.LAB 07:19
PROVIDERS: Visit Provider Internal Medicine
DX: E55.9 Vitamin D deficiency, unspecified (principal); E78.5 Hyperlipidemia, unspecified; E66.01 Morbid (severe) obesity due to excess calories; Z68.41 Body mass index [BMI] 40.0-44.9, adult; D64.9 Anemia, unspecified
CPT/HCPCS: 36415; 80053; 80061; 82306; 84443; 85025

== ENCOUNTER 2024-06-06 09:14 | Outpatient (REF) | payer BC, SELFPAY ==
[2024-06-08 20:38] LABS: TS Negative Control Passed; TS Panel A 0; TS Panel B 0; TS Positive Control Passed; TSpotTB Negative (Negative)
== END 2024-06-06 09:15 | disposition home or self-care (01) ==
LOC: HO.LAB 09:14
PROVIDERS: PCP Internal Medicine; Visit Provider Internal Medicine
DX: Z00.00 Encounter for general adult medical examination without abnormal findings (principal); E11.9 Type 2 diabetes mellitus without complications; E66.01 Morbid (severe) obesity due to excess calories; Z68.41 Body mass index [BMI] 40.0-44.9, adult; Z79.84 Long term (current) use of oral hypoglycemic drugs; Z11.1 Encounter for screening for respiratory tuberculosis
CPT/HCPCS: 36415; 86481; 96127

== ENCOUNTER 2024-06-06 09:14 | Outpatient (AMB) | payer BC, SELFPAY ==
[2024-06-06 09:31] VITALS: BP 132/86; BMI 42.8
--- NOTE | 2024-06-06 09:31 | MHC.PC.OV ---
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: No Accompanied by: Self / Same As Patient Allergies aspirin [ASPIRIN] Allergy (Mild, Verified 06/06/24 09:33) TACHYCARDIA, THROAT SWELLING, throat swelling, swollen throat phentermine Allergy (Unknown, Verified 06/06/24 09:33) Sleepiness spironolactone Adverse Reaction (Intermediate, Verified 06/06/24 09:42) Dizziness Medication List - Last Reconciled 06/06/24 by Cherise Byrd MD acetaminophen ER 650 mg PO Q8H PRN 30 days blood sugar diagnostic (FreeStyle Lite Strips) Use 1 strip once a day blood-glucose meter (FreeStyle Lite Meter kit) As directed cholecalciferol (vitamin D3) 50 mcg PO DAILY 3 months lancets (FreeStyle Lancets) Use 1 lancet once a day metformin 500 mg PO BID 90 days spironolactone 25 mg PO DAILY 90 days tirzepatide (weight loss) (Zepbound) 2.5 mg (0.5 mL) subcut QWEEK 4 weeks Tobacco use date assessed: 05/23/24 Dental Screening Dental Screen Date: 05/23/24 HPI HPI Comments History of Present Illness Details The patient is a 44-year-old female presenting with a wellness visit. She has a known history of elevated blood glucose levels, with a recent measurement showing a level of 144 mg/dL. Despite this, her Hemoglobin A1c was 6%, suggesting effective control of her glycemic status. The patient's hypertension is currently well-managed, with no problematic symptoms noted. She reported an intentional weight loss of approximately 10 pounds, achieved through changes in diet and lifestyle, specifically reducing carbohydrate intake and managing stress more effectively. In terms of medications, she experienced dizziness when taking spironolactone, leading to its discontinuation. Her past medical and surgical history includes three sections, a cholecystectomy, and venous ablation of the right leg. She received her tetanus booster in 2018, making the next dose due in 2028, and another mammogram is due this coming July. The patient confirmed no personal smoking history and occasional alcohol consumption, with her family medical history noting her mother's conditions of diabetes and hypertension. For colorectal cancer screening, she opted for the Cologuard test over a traditional colonoscopy. - Tetanus vaccine administered in 2018, next due in 2028 - Mammogram was last done in July of the previous year, due again this July - Cologuard test preferred for colorectal cancer screening - Current blood glucose management showing Hemoglobin A1c at 6% - Annual ophthalmology visit recommended but pending scheduling [facility] Medical History (Updated 06/06/24 @ 13:18 by Cherise Byrd MD) Morbid obesity due to excess calories Encounter for physical examination Immunization due Obesity (BMI 30-39.9) Anemia COVID-19 ruled out Bilateral knee swelling Surgical History Status post ablation of incompetent vein using laser History of section History of laparoscopic cholecystectomy Family History Father No problems noted. Mother Diabetes Hypertension Maternal Grandmother No problems noted. Maternal Grandfather CVD (cardiovascular disease) Paternal Grandmother No problems noted. Paternal Grandfather No problems noted. Brother No problems noted. Son No problems noted. Daughter No problems noted. 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 1. Little interest or pleasure in doing things: not at all 2. Feeling down, depressed, or hopeless: not at all 3. Trouble falling or staying asleep, or sleeping too much: not at all 4. Feeling tired or having little energy: not at all 5. Poor appetite or overeating: not at all 6. Feeling bad about yourself - or that you are a failure or have let yourself or your family down: not at all 7. Trouble concentrating on things, such as reading the newspaper or watching television: not at all 8. Moving or speaking so slowly that other people could have noticed. Or the opposite - being so fidgety or restless that you have been moving around a lot more than usual: not at all 9. Thoughts that you would be better off or of hurting yourself in some way: not at all Total score: 0 Depression Screening Interpretation: Negative Depression Screening Done: Yes 15152 - PHQ-9 Billing: Yes Source: Developed by Drs. John Do, Tiffanie Will, Evaristo Nobles and colleagues, with an educational georgina from [employer]. Thrive Questionnaire Date Thrive assessed: 05/23/24 CARLOTTA-7 AMB Questionnaire ACRLOTTA-7 Date CARLOTTA - 7 assessed: 05/23/24 Source: Developed by Drs. John Do, Tiffanie Will, Evaristo Nobles and colleagues, with an educational georgina from [employer]. Review of Systems Const All systems reviewed & are unremarkable except as noted in HPI and below Card Denies chest pain at rest, Denies chest pain with activity, Denies edema, Denies irregular heart rhythm, Denies claudication, Denies dyspnea, Denies dyspnea on exertion, Denies orthopnea, Denies paroxysmal nocturnal dyspnea and Denies slow heart rate Resp Denies cough, Denies dyspnea and Denies dyspnea on exertion GI Denies abdominal pain, Denies change in bowel habits, Denies excessive flatus, Denies nausea and Denies vomiting Physical exam (Primary Care) Vital Signs: Last Vital Signs BP 132/86 06/06/24 09:31 BMI result Body Mass Index 42.8 BMI Assessment/Plan discussion: High BMI High, discussed plan: lifestyle, weight reduction, dietary and physical activity Tobacco/Smoking Status: Tobacco use Status Tobacco use date assessed 05/23/24 06/06/24 09:33 Patient Tobacco Use Status Never used Tobacco 06/06/24 09:33 e-Cigarette/Vaping Use Never Used 06/06/24 09:33 PHQ-9: PHQ-9 Score PHQ-9: Total score 0 06/06/24 13:21 Depression Screening Interpretation: Negative Thrive Assessment: Date of Thrive Assessment Date Thrive assessed 05/23/24 06/06/24 09:33 [facility] Head: Yes normal to inspection, Yes normocephalic and Yes atraumatic Ears: external ears normal Eyes General: appearance normal, both eyes and all related structures Eyelids: Yes eyelids normal Conjunctivae: conjunctivae normal Neck Neck: Yes normal visual inspection and Yes supple Resp Effort & Inspection: normal respiratory effort Auscultation: clear to auscultation bilaterally Cardio Jugular venous distension: no JVD Rate: regular rate Rhythm: regular rhythm Heart sounds: S1 normal heart sound present and S2 normal heart sound present GI Inspection: Yes normal to inspection Palpation (GI): Soft to palpation and nontender Auscultation: normal bowel sounds Skin General skin exam: no rashes or lesions noted Neuro General: no focal motor deficits Extrem General: Yes full ROM Psych Appearance: grossly normal Coding Level of Care Code Est Pt Prev Care 40-64y(50241) Diagnoses Encounter for physical examination Z00.00 Morbid obesity with body mass index (BMI) of 40.0 to 44.9 in adult E66.01; Z68.41 Diabetes mellitus E11.9 Additional Codes PHQ-9 - 04971 - PHQ-9 Billing: Yes ([id number]) Time Spent (min) 31 Assessment & Plan Assessment & Plan (1) Encounter for physical examination: Code(s): Z00.00 - Encounter for general adult medical examination without abnormal findings Category: Medical (2) Morbid obesity with body mass index (BMI) of 40.0 to 44.9 in adult: Code(s): E66.01 - Morbid (severe) obesity due to excess calories; Z68.41 - Body mass index [BMI] 40.0-44.9, adult Category: Medical (3) Diabetes mellitus: Code(s): E11.9 - Type 2 diabetes mellitus without complications Category: Medical Plan The patient's current diabetes management with Metformin will continue as her Hemoglobin A1c indicates adequate control. Her hypertensive status is stable, with monitoring continued without changes in therapy. Due to adverse reactions, spironolactone was discontinued. She has opted for using the Cologuard test for her colorectal cancer screening. Plans include securing an appointment with ophthalmology for her routine evaluation. Vaccinations remain up-to-date, with her next tetanus dose not due until 2028. Patient was informed and verbally consented to the use of an ambient scribe for clinic note documentation during this visit. Throughout the visit, we reviewed the risks and benefits of continuing with Metformin for diabetes management, given her controlled Hemoglobin A1c levels. The advantages of sustaining her current hypertension management were discussed, with a consensus on maintaining current treatment. The choice of Cologuard over colonoscopy was consented by the patient. All treatment plans reflect our discussion, focusing on monitoring her glucose, weight, and blood pressure, and ensuring adherence to scheduled screenings and follow-up appointments. Orders: Orders T Spot TB Today Z11.1 - Encounter for screening for respiratory tuberculosis Referrals Cologuard Test Z12.11 - Encounter for screening for malignant neoplasm of colon, Z12.12 - Encounter for screening for malignant neoplasm of rectum Ophthalmology Referral E11.9 - Type 2 diabetes mellitus without complications Medications: Discontinued spironolactone Discontinued Reason: Patient Completed Course 25 mg PO DAILY 90 days 90 tabs 1RF Patient Instructions: - Continue taking Metformin as prescribed twice a day - Maintain your current healthy diet and exercise regimen - Schedule a screening mammogram for July - Complete the Cologuard test within the next month and send it back - Follow up with ophthalmology for an annual eye exam - Monitor your blood pressure regularly at home - Return for your next visit and discuss any new symptoms immediately - Stay up-to-date with your vaccinations, with tetanus next due in 2028
== END 2024-06-06 09:58 | disposition home or self-care (01) ==
LOC: HO.HMCH 09:15
PROVIDERS: PCP Internal Medicine; Visit Provider Internal Medicine
DX: Z00.00 Encounter for general adult medical examination without abnormal findings (principal); E66.01 Morbid (severe) obesity due to excess calories; Z68.41 Body mass index [BMI] 40.0-44.9, adult; E11.9 Type 2 diabetes mellitus without complications

== ENCOUNTER 2024-11-09 09:35 | Outpatient (AMB) | payer BC, SELFPAY ==
[2024-11-09 09:45] VITALS: BP 132/78; PULSE 84; O2SAT 96; BMI 41.6
--- NOTE | 2024-11-09 09:45 | MHC.PC.OV ---
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 Accompanied by: Self / Same As Patient Allergies aspirin (ASPIRIN) Allergy (Mild, Verified 11/09/24 10:20) TACHYCARDIA, THROAT SWELLING, throat swelling, swollen throat phentermine Allergy (Unknown, Verified 11/09/24 10:20) Sleepiness spironolactone Adverse Reaction (Intermediate, Verified 11/09/24 10:20) Dizziness Medication List - Last Reconciled 11/09/24 by Cherise Byrd MD acetaminophen ER 650 mg PO Q8H PRN 30 days blood sugar diagnostic (FreeStyle Lite Strips) Use 1 strip once a day blood-glucose meter (FreeStyle Lite Meter kit) As directed cholecalciferol (vitamin D3) 50 mcg PO DAILY 3 months lancets (FreeStyle Lancets) Use 1 lancet once a day metformin 500 mg PO BID 90 days tirzepatide (weight loss) (Zepbound) 2.5 mg (0.5 mL) subcut QWEEK 4 weeks Tobacco use date assessed: 11/09/24 Dental Screening Dental Screen Date: 11/09/24 Did you have a dental visit in the last 12 months?: Yes Did you have a dental problem in the last 6 months where you did not have access to dental care?: No Was dental information given to patient?: Patient has dentist HPI HPI Comments History of Present Illness Details The patient is a 44-year-old female presenting with Type 2 Diabetes Mellitus management. Her Hemoglobin A1c was previously 6.0% and has increased to 6.6%, indicating a need for medication adjustment. She has been taking Metformin 500 mg twice daily, but reports gastrointestinal discomfort, leading to inconsistent adherence. The patient also has a history of obesity, with a BMI of 41.6, down from 44.6 in April, reflecting a weight loss from 221 pounds to 206 pounds. She attributes her weight loss to improved dietary habits and increased discipline. Hypertension is well-controlled with lifestyle modifications, and there is a consideration for future low-dose lisinopril to protect renal function. The patient has an allergy to aspirin and has experienced drowsiness with phentermine and dizziness with spironolactone. [facility] Medical History (Updated 11/09/24 @ 12:40 by Cherise Byrd MD) Morbid obesity due to excess calories Encounter for physical examination Immunization due Obesity (BMI 30-39.9) Anemia COVID-19 ruled out Bilateral knee swelling Surgical History Status post ablation of incompetent vein using laser History of section History of laparoscopic cholecystectomy Family History Father No problems noted. Mother Diabetes Hypertension Maternal Grandmother No problems noted. Maternal Grandfather CVD (cardiovascular disease) Paternal Grandmother No problems noted. Paternal Grandfather No problems noted. Brother No problems noted. Son No problems noted. Daughter No problems noted. 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 7. Trouble concentrating on things, such as reading the newspaper or watching television: not at all 8. Moving or speaking so slowly that other people could have noticed. Or the opposite - being so fidgety or restless that you have been moving around a lot more than usual: not at all 9. Thoughts that you would be better off or of hurting yourself in some way: not at all Source: Developed by Drs. John Do, Tiffanie Will, Evaristo Nobles and colleagues, with an educational georgina from [employer]. Thrive Questionnaire Date Thrive assessed: 05/23/24 I am a: Patient What is your living situation today?: I have a steady place to live Within the past 12 months, did the food you bought not last and you didn't have the money to get more?: Never true Within the past 12 months, did you worry whether your food would run out before you got money to buy more?: Never true Do you have trouble paying for medicines?: No Do you have trouble getting transportation to medical appointments?: No Do you have trouble paying your heating and electricity bill?: No Do you have trouble taking care of your child, family member or friend?: No Do you have trouble with day-to-day activities such as bathing, preparing meals, shopping, managing finances, etc.?: No Are you currently unemployed and looking for a job?: No Are you interested in more education?: No Please select the resources that you would like help with: None Currently or been in a relationship where the following occur: No concerns reported THRIVE Score: 0 AUDIT C Alcohol Use Questionnaire (AUDIT-C) 1. How often do you have a drink containing alcohol?: 2-3 times a week 2. How many drinks containing alcohol do you have on a typical day when you are drinking?: 1 or 2 3. How often do you have six or more drinks on one occasion?: Monthly Total Score: 5 CARLOTTA-7 AMB Questionnaire CARLOTTA-7 Date CARLOTTA - 7 assessed: 05/23/24 Feeling nervous, anxious, or on edge: 0 = Not at all Not being able to stop or control worryin = Not at all Worrying too much about different things: 0 = Not at all Trouble relaxin = Not at all Being so restless that it is hard to sit still: 0 = Not at all Becoming easily annoyed or irritable: 0 = Not at all Feeling afraid as if something awful might happen: 0 = Not at all Total CARLOTTA-7 score (0-4 normal; 5-9 mild; 10-14 moderate; 15-21 severe): 0 Source: Developed by Drs. John Do, Tiffanie Will, Evaristo Nobles and colleagues, with an educational georgina from [employer]. CARLOTTA-7 Assessment Billing CARLOTTA-7 Assessment Tool: CARLOTTA-7 Assessment 62833 Review of Systems Const All systems reviewed & are unremarkable except as noted in HPI and below Card Denies chest pain at rest, Denies chest pain with activity, Denies edema, Denies irregular heart rhythm, Denies claudication, Denies dyspnea, Denies dyspnea on exertion, Denies orthopnea, Denies paroxysmal nocturnal dyspnea and Denies slow heart rate Resp Denies cough, Denies dyspnea and Denies dyspnea on exertion GI Denies abdominal pain, Denies change in bowel habits, Denies excessive flatus, Denies nausea and Denies vomiting Physical exam (Primary Care) Vital Signs: Last Vital Signs Pulse 84 11/09/24 09:45 BP 132/78 11/09/24 09:45 Pulse Ox 96 11/09/24 09:45 Oxygen Delivery Method Room Air 11/09/24 09:45 BMI result Body Mass Index 41.6 BMI Assessment/Plan discussion: High BMI High, discussed plan: lifestyle, weight reduction, dietary and physical activity Tobacco/Smoking Status: Tobacco use Status Tobacco use date assessed 11/09/24 11/09/24 09:56 Patient Tobacco Use Status Never used Tobacco 11/09/24 09:47 e-Cigarette/Vaping Use Never Used 11/09/24 09:47 Thrive Assessment: Date of Thrive Assessment Date Thrive assessed 05/23/24 11/09/24 09:47 Currently or been in a relationship where the following occur: No concerns reported Resp Effort & Inspection: normal respiratory effort Auscultation: clear to auscultation bilaterally Cardio Jugular venous distension: no JVD Rate: regular rate Rhythm: regular rhythm Heart sounds: S1 normal heart sound present and S2 normal heart sound present Extrem General: Yes full ROM Coding Level of Care Code Est Pt Level 4 (21471) Complex EM visit Add On G2211 Diagnoses Diabetes mellitus E11.9 Morbid obesity with body mass index (BMI) of 40.0 to 44.9 in adult E66.01; Z68.41 Essential hypertension I10 Hypovitaminosis D E55.9 Hyperlipidemia LDL goal <70 E78.5 Additional Codes CARLOTTA-7 Assessment Billing - CARLOTTA-7 Assessment Tool: CARLOTTA-7 Assessment 87489 ([id number]) Time Spent (min) 22 Assessment & Plan Assessment & Plan (1) Diabetes mellitus: Code(s): E11.9 - Type 2 diabetes mellitus without complications Category: Medical (2) Morbid obesity with body mass index (BMI) of 40.0 to 44.9 in adult: Code(s): E66.01 - Morbid (severe) obesity due to excess calories; Z68.41 - Body mass index [BMI] 40.0-44.9, adult Category: Medical (3) Essential hypertension: Code(s): I10 - Essential (primary) hypertension Category: Medical (4) Hypovitaminosis D: Code(s): E55.9 - Vitamin D deficiency, unspecified Category: Medical (5) Hyperlipidemia LDL goal <70: Code(s): E78.5 - Hyperlipidemia, unspecified Category: Medical Plan Plan Patient was informed and verbally consented to the use of an ambient scribe for clinic note documentation during this visit. 1. Type 2 Diabetes Mellitus The patient's Hemoglobin A1c has increased to 6.6%, necessitating a change in her diabetes management plan. Metformin will be discontinued due to gastrointestinal discomfort, and Jardiance will be initiated as an alternative therapy. Ozempic may be considered if approved by insurance, to further assist in glycemic control and appetite suppression. 2. Obesity The patient has successfully reduced her weight from 221 pounds to 206 pounds, lowering her BMI from 44.6 to 41.6. Continued emphasis on dietary habits and discipline is recommended to further reduce BMI below 40. 3. Hypertension Hypertension is currently well-controlled with lifestyle modifications. Consideration for future initiation of low-dose lisinopril to protect renal function is noted, but not currently necessary. 4. Preventative Care A repeat cholesterol panel is recommended in four months to monitor cardiovascular risk associated with diabetes. Orders: Orders Microalbumin, Random (w Creat) 4 Months R80.9 - Proteinuria, unspecified AMB Hemoglobin A1c Today Z13.9 - Encounter for screening, unspecified Lipid Panel 4 Months E78.5 - Hyperlipidemia, unspecified Vitamin D 25-OH Total 4 Months E55.9 - Vitamin D deficiency, unspecified Comprehensive [place]. Panel Fast 4 Months E11.9 - Type 2 diabetes mellitus without complications Medications: New empagliflozin (Jardiance) 10 mg PO DAILY 90 tabs 0RF 90 days semaglutide (Ozempic) for 4 weeks 0.25 mg (0.368 mL) subcut QWEEK 1.472 mL 0RF 4 weeks E11.9 - Type 2 diabetes mellitus without complications Refilled cholecalciferol (vitamin D3) 50 mcg PO DAILY 90 caps 0RF 3 months Discontinued tirzepatide (weight loss) (Zepbound) for 4 weeks Discontinued Reason: Patient Completed Course 2.5 mg (0.5 mL) subcut QWEEK 4 weeks 2 mL 0RF E66.01 - Morbid (severe) obesity due to excess calories, Z68.41 - Body mass index [BMI] 40.0-44.9, adult metformin Discontinued Reason: Patient Completed Course 500 mg PO BID 90 days 180 tabs 1RF E11.9 - Type 2 diabetes mellitus without complications
== END 2024-11-09 10:35 | disposition home or self-care (01) ==
LOC: HO.HMCH 09:36
PROVIDERS: PCP Internal Medicine; Visit Provider Internal Medicine
DX: E11.9 Type 2 diabetes mellitus without complications (principal); E66.01 Morbid (severe) obesity due to excess calories; Z68.41 Body mass index [BMI] 40.0-44.9, adult; I10 Essential (primary) hypertension; E55.9 Vitamin D deficiency, unspecified; E78.5 Hyperlipidemia, unspecified

== ENCOUNTER → 2024-11-09 09:35 | Outpatient (BNVA) | payer BC, SELFPAY | PROVIDERS: PCP Internal Medicine; Visit Provider Internal Medicine | DX: E11.9 Type 2 diabetes mellitus without complications (principal); I10 Essential (primary) hypertension; E55.9 Vitamin D deficiency, unspecified; E78.5 Hyperlipidemia, unspecified; R80.9 Proteinuria, unspecified; E66.01 Morbid (severe) obesity due to excess calories; Z68.41 Body mass index [BMI] 40.0-44.9, adult | CPT/HCPCS: 96127 ==

== ENCOUNTER 2024-11-21 09:25 | Outpatient (AMB) | payer BC, SELFPAY ==
--- NOTE | 2024-11-21 09:31 | MHC.OFFWIV ---
Intake Vital Signs 11/21/24 09:33 Height 4 ft 11 in Weight 145 lb BMI 29.3 BP 146/96 H Blood Pressure Location Lt brachial Position Sitting Respiration 16 Pulse 74 Pulse Source Pulse Oximeter Temp 97.9 F Temp Source Oral Pulse Oximetry (%) 96 Oxygen Delivery Method Room Air Intake Visit Reasons: EP RT leg/knee pain Patient Tobacco Use Status: Never used Tobacco Allergies aspirin (ASPIRIN) Allergy (Mild, Verified 11/21/24 09:33) TACHYCARDIA, THROAT SWELLING, throat swelling, swollen throat phentermine Allergy (Unknown, Verified 11/21/24 09:33) Sleepiness spironolactone Adverse Reaction (Intermediate, Verified 11/21/24 09:33) Dizziness HPI HPI Comments History of Present Illness Details 44 y/o Female patient who presents to the walk in clinic with c/o Right Knee Pain - this is a chronic ongoing Issue. Reports difficulty with bending, climbing stairs, decreased tolerance with prolonged walking or standing, performing ADLs and squatting activities secondary to decreased right knee range of motion, stiffness and pain. 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 She was evaluated by Ortho 2023 and Surgery was not recommended at that time. She was Seen by Pain management clinic for Cortisone and Gel Injections with some improvement. Her last Injection was 04/2024. Pt was referred back to Ortho this year and the appointment was scheduled for 06/2024 but patient no showed because of her busy work schedule. She was told to go Physical therapy but she did not have time to schedule sessions. She has been using Knee Brace with some relief. MRI Knee 2023 Showed: Mild arthrosis of the patellofemoral compartment and medial compartment. [facility] Medical History (Updated 11/09/24 @ 12:40 by Cherise Byrd MD) Morbid obesity due to excess calories Encounter for physical examination Immunization due Obesity (BMI 30-39.9) Anemia COVID-19 ruled out Bilateral knee swelling Surgical History Status post ablation of incompetent vein using laser History of section History of laparoscopic cholecystectomy Family History Father No problems noted. Mother Diabetes Hypertension Maternal Grandmother No problems noted. Maternal Grandfather CVD (cardiovascular disease) Paternal Grandmother No problems noted. Paternal Grandfather No problems noted. Brother No problems noted. Son No problems noted. Daughter No problems noted. 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 Current occupational exposures/hazards: No Cognitive needs: No Hearing needs: No Vision needs: No Female Reproductive History Menstrual Age of Menarche: 7 Review of Systems Const All systems reviewed & are unremarkable except as noted in HPI and below Physical Exam Vital Signs: Last Vital Signs Temp 97.9 F 11/21/24 09:33 Pulse 74 11/21/24 09:33 Resp 16 11/21/24 09:33 BP 146/96 H 11/21/24 09:33 Pulse Ox 96 11/21/24 09:33 Oxygen Delivery Method Room Air 11/21/24 09:33 BMI result Body Mass Index 29.3 Const General: no acute distress Nutritional Appearance: obese Orientation/consciousness: patient oriented x3 Neuro General: patient oriented x3, gait normal and moves all extremities Extrem Right lower extremity: knee Details: normal to inspection, tenderness Location: of the patella Details: inferomedially and inferolaterally, of the medial joint line and of the lateral joint line and abnormal ROM (Limited ROM due to Pain); no swelling, no ecchymosis and no crepitus Psych Speech and movement: Normal speech and movement present Assessment & Plan Assessment & Plan (1) Derangement of knee, right: Code(s): M23.91 - Unspecified internal derangement of right knee Plan: This is Chronic Problem. Advised Patient to call Ortho and reschedule the missed appointment. Advised to Call Pain clinic for another injection Continue wearing Knee Brace NSAIDS and Acetaminophen for pain relief. Rest, Ice and Heat. Coding Level of Care Code Est Pt Level 4 (30746) Diagnoses Derangement of knee, right M23.91 Time Spent (min) 20
[2024-11-21 09:33] VITALS: BP 146/96; PULSE 74; RESP 16; TEMP 36.6; O2SAT 96; BMI 29.3
== END 2024-11-21 09:55 | disposition home or self-care (01) ==
PROVIDERS: PCP Internal Medicine; Visit Provider Nurse Practitioner Family
DX: M23.91 Unspecified internal derangement of right knee (principal)

== ENCOUNTER 2025-01-13 09:16 | Outpatient (AMB) | payer BC, SELFPAY ==
--- NOTE | 2025-01-13 09:34 | MHC.OFFVIS ---
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 Allergies aspirin (ASPIRIN) Allergy (Mild, Verified 01/13/25 09:37) TACHYCARDIA, THROAT SWELLING, throat swelling, swollen throat phentermine Allergy (Unknown, Verified 01/13/25 09:37) Sleepiness spironolactone Adverse Reaction (Intermediate, Verified 01/13/25 09:37) Dizziness Medication List - Last Reconciled 01/13/25 by Iraida Moyer LPN acetaminophen ER 650 mg PO Q8H PRN 30 days blood sugar diagnostic (FreeStyle Lite Strips) Use 1 strip once a day blood-glucose meter (FreeStyle Lite Meter kit) As directed cholecalciferol (vitamin D3) 50 mcg PO DAILY 3 months lancets (FreeStyle Lancets) Use 1 lancet once a day HPI HPI bilateral knee pain: Details: History of Present Illness The patient is a 44-year-old female presenting with right knee pain. The patient was last seen in November last year when the patient received an intra-articular gel injection in the right knee, which provided relief for about a year. Recently, the patient reports that the pain has returned, particularly in the posterior aspect of the knee. The patient has attempted weight loss to alleviate the symptoms, suspecting that weight might be contributing to the problem. Pain Description - Onset: Pain returned recently after relief from prior injection - Location: Right knee, particularly posterior aspect - Exacerbating factors: Suspected weight contribution Physical Exam - Posterior knee pain [facility] Medical History (Updated 11/09/24 @ 12:40 by Cherise Byrd MD) Morbid obesity due to excess calories Encounter for physical examination Immunization due Obesity (BMI 30-39.9) Anemia COVID-19 ruled out Bilateral knee swelling Surgical History Status post ablation of incompetent vein using laser History of section History of laparoscopic cholecystectomy Family History Father No problems noted. Mother Diabetes Hypertension Maternal Grandmother No problems noted. Maternal Grandfather CVD (cardiovascular disease) Paternal Grandmother No problems noted. Paternal Grandfather No problems noted. Brother No problems noted. Son No problems noted. Daughter No problems noted. 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 Current occupational exposures/hazards: No Cognitive needs: No Hearing needs: No Vision needs: No Female Reproductive History Menstrual Age of Menarche: 7 Physical Exam Vital Signs: Last Vital Signs Pulse 94 01/13/25 09:36 Resp 16 01/13/25 09:36 BP 128/78 01/13/25 09:36 Pulse Ox 96 01/13/25 09:36 Oxygen Delivery Method Room Air 01/13/25 09:36 BMI result Body Mass Index 40.8 Assessment & Plan Assessment & Plan (1) Arthritis of right knee: Code(s): M17.11 - Unilateral primary osteoarthritis, right knee Category: Medical Plan Plan Patient was informed and verbally consented to the use of an ambient scribe for clinic note documentation during this visit. 1. Right Knee Pain - Plan to perform an ultrasound of the right knee to assess for any abnormalities that may require drainage or a cortisone injection before considering another gel injection. - Follow-up appointment to be scheduled for the ultrasound and potential intervention. Discussion Notes We discussed the recurrence of right knee pain and the effectiveness of the previous gel injection. I recommended an ultrasound to evaluate the knee further and determine if a cortisone injection is necessary before repeating the gel injection. The patient agreed to schedule a follow-up appointment for the ultrasound and potential intervention. Patient Instructions - Schedule an appointment for a right knee ultrasound and potential injection. - Follow up with the clinic after the ultrasound for further management. Coding Level of Care Code Est Pt Level 3 (95028) Diagnoses Arthritis of right knee M17.11
[2025-01-13 09:36] VITALS: BP 128/78; PULSE 94; RESP 16; O2SAT 96; BMI 40.8
== END 2025-01-13 09:53 | disposition home or self-care (01) ==
LOC: HO.PMC 09:17
PROVIDERS: PCP Internal Medicine; Visit Provider Internal Medicine
DX: M17.11 Unilateral primary osteoarthritis, right knee (principal)
CPT/HCPCS: 99213

== ENCOUNTER 2025-02-03 10:29 | Outpatient (AMB) | payer BC, SELFPAY ==
--- NOTE | 2025-02-03 10:39 | A.OFFVIS_ITS ---
Vital Signs 02/03/25 10:42 Height 4 ft 11 in Weight 201 lb BMI 40.6 BP 173/86 H Blood Pressure Location Lt radial Position Sitting Respiration 16 Pulse 88 Pulse Source Pulse Oximeter Pulse Oximetry (%) 100 Oxygen Delivery Method Room Air Intake Visit Reasons: Right Knee US/Inj. Thread Singer Required: No Colon And Rectal Surgeon: Colon And Rectal Surgeon Present Accompanied by: Jeffrey Thompson Allergies aspirin (ASPIRIN) Allergy (Mild, Verified 02/03/25 10:43) TACHYCARDIA, THROAT SWELLING, throat swelling, swollen throat phentermine Allergy (Unknown, Verified 02/03/25 10:43) Sleepiness spironolactone Adverse Reaction (Intermediate, Verified 02/03/25 10:43) Dizziness Medication List - Last Reconciled 02/03/25 by Iraida Moyer LPN acetaminophen ER 650 mg PO Q8H PRN 30 days blood sugar diagnostic (FreeStyle Lite Strips) Use 1 strip once a day blood-glucose meter (FreeStyle Lite Meter kit) As directed cholecalciferol (vitamin D3) 50 mcg PO DAILY 3 months lancets (FreeStyle Lancets) Use 1 lancet once a day HPI Comments Details: History of Present Illness The patient is a 45 year old female presenting for an ultrasound evaluation of posterior right knee pain. Her symptoms have been unchanged since her last visit and are localized to the back of the knee, extending into the thigh. Pain Description - Location: The patient reports pain in the posterior right knee and thigh. - Exacerbating factors: The pain is reproduced with palpation. Results - Ultrasound of the posterior right thigh: Revealed what appeared to be well- circumscribed lesions with hypoechoic consistency. - Aspiration of posterior thigh mass: An 18-gauge needle was introduced into the lesions under ultrasound guidance, and aspiration was attempted with no fluid return. [facility] Medical History (Updated 11/09/24 @ 12:40 by Cherise Byrd MD) Morbid obesity due to excess calories Encounter for physical examination Immunization due Obesity (BMI 30-39.9) Anemia COVID-19 ruled out Bilateral knee swelling Surgical History Status post ablation of incompetent vein using laser History of section History of laparoscopic cholecystectomy Family History Father No problems noted. Mother Diabetes Hypertension Maternal Grandmother No problems noted. Maternal Grandfather CVD (cardiovascular disease) Paternal Grandmother No problems noted. Paternal Grandfather No problems noted. Brother No problems noted. Son No problems noted. Daughter No problems noted. 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 - Right Lower Extremity: Palpation of the posterior aspect of the distal right thigh revealed tenderness. Procedure - Procedure: Ultrasound-guided aspiration and injection of multiple painful soft tissue masses of the posterior right thigh. - Informed consent was obtained prior to the procedure. - Description: The patient was placed in a prone position. - An ultrasound was used to visualize painful areas in the posterior aspect of the distal right thigh, which appeared as well-circumscribed, hypoechoic, negative to aspiration. - An 18-gauge needle was introduced into the area, and aspiration was attempted with no return. - A decision was then made to inject the painful lipomas. A total of 30 mg of Kenalog was distributed among the various lipomas using a 25-gauge needle. - Outcome: The patient tolerated the procedure well with minimal blood loss. Images saved. Vital Signs: Last Vital Signs Pulse 88 02/03/25 10:42 Resp 16 02/03/25 10:42 BP 173/86 H 02/03/25 10:42 Pulse Ox 100 02/03/25 10:42 Oxygen Delivery Method Room Air 02/03/25 10:42 BMI result Body Mass Index 40.6 Assessment & Plan Assessment & Plan (1) Bilateral knee swelling: Code(s): M25.461 - Effusion, right knee; M25.462 - Effusion, left knee Category: Medical Plan Plan Patient was informed and verbally consented to the use of an ambient scribe for clinic note documentation during this visit. 1. Pain Posterior Right Thigh S/p kenalog injections - will assess response DDx includes ?vein remnants Coding Level of Care Code Est Pt Level 3 (10178) Diagnoses Bilateral knee swelling M25.461; M25.462
[2025-02-03 10:42] VITALS: BP 173/86; PULSE 88; RESP 16; O2SAT 100; BMI 40.6
== END 2025-02-03 11:58 | disposition home or self-care (01) ==
LOC: HO.PMC 10:30
PROVIDERS: PCP Internal Medicine; Visit Provider Internal Medicine
DX: M25.461 Effusion, right knee (principal); M25.462 Effusion, left knee; D17.23 Benign lipomatous neoplasm of skin and subcutaneous tissue of right leg
CPT/HCPCS: 11900; 76942; 99213

== ENCOUNTER → 2025-02-03 10:29 | Outpatient (BNVA) | payer BC, SELFPAY | PROVIDERS: PCP Internal Medicine; Visit Provider Internal Medicine | DX: M25.461 Effusion, right knee (principal); M25.462 Effusion, left knee | CPT/HCPCS: 11900 ==